=== PATIENT | female | born 1980 | race African-American/Black ===

== ENCOUNTER 2021-03-08 16:10 | Outpatient (CLI) | payer OTHER, SELFPAY ==
--- NOTE | ~2021-03-08 | XR_ITS ---
XR sacroiliac joints min 3V DATE: 03/08/2021 16:39 INDICATION: Sacroiliac pain TECHNIQUE: Frontal and oblique views COMPARISON: None FINDINGS: The pubic symphysis and sacroiliac joints appear normal. No erosive change or ankylosis, fr acture or dislocation is evident at the sacroiliac joints. IMPRESSION: Negative Reviewed, dictated and finalized at Location [facility]. Reviewed, dictated and finalized at location B. IMPRESSION: Negative
== END 2021-03-08 16:11 | disposition home or self-care (01) ==
LOC: ANHIMG 16:14
PROVIDERS: PCP Family Medicine; Visit Provider Family Medicine
DX: M79.18 Myalgia, other site (principal)
CPT/HCPCS: 72202

== ENCOUNTER 2021-08-21 11:00 | Emergency (ER) | payer OTHER, SELFPAY ==
[2021-08-21 11:05] VITALS: BP 136/92; PULSE 109; RESP 16; TEMP 36.9; O2SAT 98
--- NOTE | 2021-08-21 11:29 | ED.URI ---
HPI - URI/Sore Throat General Chief Complaint: Upper Respiratory Infection Stated Complaint: russo/sore throat/ear pain Time Seen by Provider: 08/21/21 11:17 Source: patient and RN notes reviewed Mode of arrival: ambulatory Limitations: no limitations History of Present Illness HPI Narrative: Patient presents today complaining of a 5 to 6-day history of sinus pressure, congestion, bilateral ear pain, headache, with left eye redness and watering x3 days. 5 days ago she had a COVID-19 test at [facility] and the results were negative. She has been taking Tylenol, Sudafed, NyQuil, elderberry syrup without much relief. She had appointment set up with her PCP, but they would not see her due to COVID-19 symptoms. MD elicited complaint: nasal congestion and sinus pain Related Data Allergies Allergy/AdvReac Type Severity Reaction Status Date / Time No Known Allergies Allergy Unverified 04/26/21 10:00 Review of Systems Review of Systems: CONSTITUTIONAL: Denies body aches, fever, chills, or sweats. EYES: Denies visual changes, or discharge.+ Left eye redness and watering ENT: Denies rhinorrhea, sore throat, or otalgia.+ Congestion, sinus pressure, ear pain CARDIOVASCULAR: Denies chest pain, palpitations, or edema. RESPIRATORY: Denies cough or dyspnea. GASTROINTESTINAL: Denies abdominal pain, nausea, vomiting, or diarrhea. GENITOURINARY: Denies dysuria or hematuria. SKIN: Denies rash, itching, or wounds. MUSCULOSKELETAL: Denies back pain, joint pain, or myalgia. NEUROLOGIC: Denies numbness, tingling, or weakness.+ Headache PSYCH: Denies depression or anxiety. [facility] Past Medical History Medical History ACL injury tear Chronic insomnia Constipation by delayed colonic transit External hemorrhoids Gestational diabetes History of rectal bleeding Internal hemorrhoids Normal colonoscopy Vertigo Surgical History Surgical History H/O LEEP History of ablation of neoplasm of liver History of tonsillectomy S/P right knee arthroscopy ACL repair 2018 Family History Family History Mother Hypertension Family history of diabetes mellitus in first degree relative Asthma Other Family history of arthritis Social History Social History Social History: Single Smoking status: Never smoker Second hand tobacco smoke exposure: No Alcohol intake: current Alcohol use details: Occasionally Substance use: never Substance use type: does not use Gender identity (if verbalized by the patient): Female Sexual Orientation (if Verbalized by the Patient): Straight or Heterosexual Comments At time of signature, I have reviewed and agree with nursing past medical, surgical, social and family history unless otherwise noted. Please see nursing chart for further information. There is no relevant family history pertinent to the presenting complaint Exam Narrative: GENERAL: Mildly ill-appearing, well-nourished, and in no acute distress. HEAD: Normocephalic, atraumatic. EYES: EOMI. PERRL. Left eye: Injected conjunctiva with moderate watery discharge. Lids and lashes normal. Right eye normal ENT: Mucous membranes pink and moist. Nares congested with rhinorrhea. TMs normal bilaterally. Throat normal. Uvula midline. NECK: Normal AROM. Supple. No lymphadenopathy. CHEST: No respiratory distress. Clear to auscultation. HEART: Regular rate and rhythm. No murmur appreciated. Normal peripheral pulses. EXTREMITIES: Normal range of motion. No edema. SKIN: Warm, dry, no rash. Capillary refill normal. Normal skin turgor. NEURO: No focal deficits. Alert and oriented x3. Gait steady. PSYCH: Normal affect. No signs of depression or anxiety. Course Course Level of Care: Express Care Visit Vit
== END 2021-08-21 12:20 | disposition home or self-care (01) ==
PROVIDERS: Emergency Provider Nurse Practitioner; PCP Family Medicine
DX: J06.9 Acute upper respiratory infection, unspecified (principal); H10.32 Unspecified acute conjunctivitis, left eye; Z20.822 Contact with and (suspected) exposure to COVID-19
CPT/HCPCS: 87426; 87804; 99213; C9803; G0463

== ENCOUNTER 2022-06-13 17:13 | Emergency (ER) | payer OTHER, SELFPAY ==
[2022-06-13 17:24] VITALS: BP 151/93; PULSE 81; RESP 16; TEMP 37; O2SAT 99
[2022-06-13 17:32] VITALS: BP 151/93; PULSE 81; RESP 16; TEMP 37; O2SAT 99
--- NOTE | 2022-06-13 17:40 | ED.URI ---
HPI - URI/Sore Throat General Chief Complaint: Upper Respiratory Infection Stated Complaint: cough, Time Seen by Provider: 06/13/22 17:31 Source: patient Mode of arrival: ambulatory Limitations: no limitations History of Present Illness HPI Narrative: Patient presents today complaining of a an almost 3 week history of cough, congestion, ear pressure. Over a week ago she was seen by telemedicine, diagnosed with bronchitis and prescribed amoxicillin and an albuterol inhaler. She finished the amoxicillin and states her symptoms are no better. She has been using many [id number]-[id number] treatments without much relief, including Delsym, Vicks Vaporub, Sudafed. History of asthma, but does not use any routine medications. Related Data Home Medications Medication Instructions Recorded Confirmed Flonase 06/13/22 Allergies Allergy/AdvReac Type Severity Reaction Status Date / Time No Known Allergies Allergy Verified 06/13/22 17:23 Review of Systems Review of Systems: CONSTITUTIONAL: Denies body aches, fever, chills, or sweats. EYES: Denies visual changes, redness, or discharge. ENT: Denies rhinorrhea, sore throat, or otalgia.+ Congestion, ear pressure CARDIOVASCULAR: Denies chest pain, palpitations, or edema. RESPIRATORY: Denies dyspnea.+ cough, wheezing GASTROINTESTINAL: Denies abdominal pain, nausea, vomiting, or diarrhea. GENITOURINARY: Denies dysuria or hematuria. SKIN: Denies rash, itching, or wounds. MUSCULOSKELETAL: Denies back pain, joint pain, or myalgia. NEUROLOGIC: Denies headache, numbness, tingling, or weakness. PSYCH: Denies depression or anxiety. [facility] Past Medical History Medical History ACL injury tear Chronic insomnia Constipation by delayed colonic transit External hemorrhoids Gestational diabetes History of rectal bleeding Internal hemorrhoids Normal colonoscopy Vertigo Surgical History Surgical History H/O LEEP History of ablation of neoplasm of liver History of tonsillectomy S/P right knee arthroscopy ACL repair 2018 Family History Family History Mother Hypertension Family history of diabetes mellitus in first degree relative Asthma Other Family history of arthritis Social History Social History Social History: Single Smoking status: Never smoker Second hand tobacco smoke exposure: No Alcohol intake: current Alcohol use details: Occasionally Substance use: never Substance use type: does not use Gender identity (if verbalized by the patient): Female Sexual Orientation (if Verbalized by the Patient): Straight or Heterosexual Comments At time of signature, I have reviewed and agree with nursing past medical, surgical, social and family history unless otherwise noted. Please see nursing chart for further information. There is no relevant family history pertinent to the presenting complaint Exam Narrative: GENERAL: Well-appearing, well-nourished, and in no acute distress. HEAD: Normocephalic, atraumatic. EYES: EOMI. No redness or drainage. Conjunctivae normal. ENT: Mucous membranes pink and moist. Nares congested. No rhinorrhea. TMs normal bilaterally. Throat normal. Uvula midline. NECK: Normal AROM. Supple. No lymphadenopathy. CHEST: No respiratory distress. Slight wheezing in the left upper lobe, otherwise clear. HEART: Regular rate and rhythm. No murmur appreciated. Normal peripheral pulses. EXTREMITIES: Normal range of motion. No edema. SKIN: Warm, dry, no rash. Capillary refill normal. Normal skin turgor. NEURO: No focal deficits. Alert and oriented x3. Gait steady. PSYCH: Normal affect. No signs of depression or anxiety. Course Course Level of Care: Express Care Visit Vital Signs Vital sig
== END 2022-06-13 17:52 | disposition home or self-care (01) ==
PROVIDERS: Emergency Provider Nurse Practitioner; PCP Family Medicine
DX: J40 Bronchitis, not specified as acute or chronic (principal); J45.909 Unspecified asthma, uncomplicated
CPT/HCPCS: 99213; G0463

== ENCOUNTER 2022-06-20 10:16 | Emergency (ER) | payer OTHER, SELFPAY ==
--- NOTE | ~2022-06-20 | XR_ITS ---
EXAMINATION: XR chest 2V DATE: 06/20/2022 10:44 INDICATION: Cough and shortness of breath TECHNIQUE: PA and lateral views of the chest are obtained. COMPARISON: 04/24/2016 FINDINGS: The lungs are free of acute opacities. No pleural effusion or pneumothorax. The cardiomedia stinal silhouette is normal. The visualized bones and soft tissues are unremarkable. IMPRESSION: 1. No acute cardiopulmonary abnormality. Reviewed, dictated and finalized at location B. 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
--- NOTE | 2022-06-20 10:24 | ED.URI ---
HPI - URI/Sore Throat General Chief Complaint: Upper Respiratory Infection Stated Complaint: COUGH/CONGESTION/WHEEZING/SOB Time Seen by Provider: 06/20/22 10:30 Source: patient and RN notes reviewed Mode of arrival: ambulatory Limitations: no limitations History of Present Illness HPI Narrative: 41-year-old female presents with concern for 3-1/2 week history as cough and shortness of breath she reports she had a telehealth visit on June 05 that she was prescribed amoxicillin and albuterol. She reports that did not help her symptoms much. She reports she was then seen on June 13 and was given cough medicine and steroids. Reports the steroids helped her sinus pressure but did not help her cough and shortness of breath. She reports she has a history of asthma but has not had many issues with her asthma. She reports she continues to have feeling of shortness of breath, cough, chest congestion. She reports she uses her albuterol inhaler 3-4 times daily. MD elicited complaint: cough and other (Shortness of breath) Related Data Allergies Allergy/AdvReac Type Severity Reaction Status Date / Time No Known Allergies Allergy Verified 06/20/22 10:19 Review of Systems Review of Systems: CONSTITUTIONAL: Denies malaise, chills, sweats, or fever. EYES: Denies visual changes, redness, or discharge. ENT: Denies rhinorrhea, congestion, sinus pain, otalgia and sore throat. CARDIOVASCULAR: Denies chest pain, palpitations, or edema. RESPIRATORY: Reports cough, chest congestion, dyspnea. GASTROINTESTINAL: Denies abdominal pain, nausea, vomiting, diarrhea SKIN: Denies rash or itching. MUSCULOSKELETAL: Denies myalgia. NEUROLOGIC: Denies headache. All systems reviewed & are unremarkable except as noted in HPI and below PMFSH Past Medical History Medical History ACL injury tear Chronic insomnia Constipation by delayed colonic transit External hemorrhoids Gestational diabetes History of rectal bleeding Internal hemorrhoids Normal colonoscopy Vertigo Surgical History Surgical History H/O LEEP History of ablation of neoplasm of liver History of tonsillectomy S/P right knee arthroscopy ACL repair 2018 Family History Family History Mother Hypertension Family history of diabetes mellitus in first degree relative Asthma Other Family history of arthritis Social History Social History Social History: Single Smoking status: Never smoker Second hand tobacco smoke exposure: No Alcohol intake: current Alcohol use details: Occasionally Substance use: never Substance use type: does not use Gender identity (if verbalized by the patient): Female Sexual Orientation (if Verbalized by the Patient): Straight or Heterosexual Comments At time of signature, agree with nursing past medical, surgical, social and family history. There is no relevant family history pertinent to the presenting complaint Exam Narrative: GENERAL: Well-appearing, well-nourished, and in no acute distress. HEAD: Normocephalic EYES: PERRLA, conjunctivae clear ENT: Nares clear, turbinates edematous and erythematous, clear discharge. Mucous membranes moist. TM pearly sanchez with dull light reflex bilaterally; no tragal tenderness. Oropharynx not erythematous without lesions. Tonsils not enlarged and without exudate, no drooling, no hoarseness, no trismus, uvula midline. NECK: Supple. No lymphadenopathy CHEST: Clear to auscultation, breath sounds equal. No wheezing, rhonchi, rales, or stridor. No respiratory distress, speaks in full sentences. HEART: Regular rate and rhythm. No murmur heard. SKIN: Warm, dry, no rash. NEURO: Alert and oriented x3. PSYCH: Normal mood and affect Course Course Emergency Course: P
[2022-06-20 10:30] VITALS: BP 143/76; PULSE 95; RESP 20; TEMP 36.5; O2SAT 99
[2022-06-20 10:35] VITALS: BP 143/76; PULSE 95; RESP 20; TEMP 36.5; O2SAT 99
[2022-06-20 11:14] VITALS: O2SAT 99
[2022-06-20] MEDS: ALBUTEROL SULFATE NEB 2.5 MG/3 ML INH INHALATION (11:14)
[2022-06-20] MEDS: IPRATROPIUM BR 0.02% INH SOLN 0.5 MG/2.5 ML VIAL INHALATION (11:14)
[2022-06-20 11:40] VITALS: O2SAT 99
== END 2022-06-20 11:45 | disposition home or self-care (01) ==
PROVIDERS: Emergency Provider Nurse Practitioner; PCP Family Medicine
DX: J06.9 Acute upper respiratory infection, unspecified (principal)
CPT/HCPCS: 71046; 94640; 99213; G0463

== ENCOUNTER 2022-11-13 13:23 | Emergency (ER) | payer OTHER, SELFPAY ==
[2022-11-13 13:34] VITALS: BP 139/86; PULSE 88; RESP 16; TEMP 36.6; O2SAT 97
--- NOTE | 2022-11-13 13:40 | ED.URI ---
HPI - URI/Sore Throat General Chief Complaint: Upper Respiratory Infection Stated Complaint: ear pain, sore throat, cough,headache Source: patient, RN notes reviewed and old records reviewed Mode of arrival: ambulatory Limitations: no limitations History of Present Illness HPI Narrative: 42 year old female who presents to [facility] care with complaints of headache,sore throat, ear pain, body aches since Thursday night and cough starting last night. Patient reports that her daughter was diagnosed with strep last with her last antibiotic scheduled on Thursday. Patient reports that she was in bed all day yesterday feeling poorly, has been taking Mucinex, cough drops Chloraseptic throat spray and using nasal inhaler. Patient reports that she has been COVID vaccinated an has had flu shot this season. MD elicited complaint: cough, sore throat and other (ear pain) Pertinent past history: asthma and other (bronchitis) Onset (ago): day(s) (day 4 of symptoms) Severity: severe Pain scale (0-10): 9 Description of mucous: clear Able to tolerate fluids by mouth: Yes Treatments prior to arrival: other (Mucinex,cough drops, Chloraseptic throat spray,nasal inhaler) Related Data Home Medications Medication Instructions Recorded Confirmed albuterol sulfate 90 mcg/actuation 90 mcg inhalation Q4H PRN 11/13/22 11/13/22 aerosol inhaler Shortness Of Breath drospirenone (contraceptive) 4 mg 1 tablet PO DAILY 11/13/22 11/13/22 (28) tablet (Slynd) Allergies Allergy/AdvReac Type Severity Reaction Status Date / Time No Known Allergies Allergy Verified 11/13/22 13:44 Review of Systems Review of Systems: CONSTITUTIONAL:Reports malaise, chills, sweats, or fever. EYES: Denies visual changes, redness, or discharge. ENT: Reports rhinorrhea, congestion, sinus pain, otalgia and sore throat. CARDIOVASCULAR: Denies chest pain, palpitations, or edema. RESPIRATORY: Reports cough.? Denies dyspnea. GASTROINTESTINAL: Denies abdominal pain, nausea, vomiting, diarrhea SKIN: Denies rash or itching. MUSCULOSKELETAL: Reports myalgia. NEUROLOGIC: Reports headache. All systems reviewed & are unremarkable except as noted in HPI and below PMFSH Past Medical History Medical History (Updated 11/13/22 @ 13:53 by Domonique Turner NP) 10 weeks gestation of ACL injury tear Acute pain of right knee Annual physical exam Anxiety disorder, unspecified Chronic insomnia Constipation by delayed colonic transit Contraceptive use Contusion of right knee, initial encounter Effusion of right knee Elevated blood pressure reading Encounter for other specified surgical aftercare External hemorrhoids Generalized anxiety disorder Gestational diabetes Groin mass Hemangioma of liver Hematochezia Hepatic focal nodular hyperplasia History of rectal bleeding Hx of abnormal cervical Pap smear Internal hemorrhoids Liver mass Metabolic syndrome Mild intermittent asthma without complication Normal colonoscopy Obstructive sleep apnea (adult) (pediatric) Other specified depressive episodes Palpitations Perioral dermatitis Positive depression screening PSVT (paroxysmal supraventricular tachycardia) Recurrent tonsillitis Rupture of anterior cruciate ligament Uterine leiomyoma Vertigo Surgical History Surgical History H/O LEEP History of ablation of neoplasm of liver History of tonsillectomy S/P right knee arthroscopy ACL repair 2018 Family History Family History Mother Hypertension Family history of diabetes mellitus in first degree relative Asthma Other Family history of arthritis Social History Social History (Updated 07/08/22 @ 09:43 by Rosalie Campbell) Social History: Single Smoking status: Never smoker Second hand tobacco smoke exposure: No Alcohol intake: current Alcohol use details: Occasionally Substance us
== END 2022-11-13 14:04 | disposition home or self-care (01) ==
PROVIDERS: Emergency Provider Registered Nurse; PCP Family Medicine
DX: U07.1 COVID-19 (principal); J45.909 Unspecified asthma, uncomplicated; F41.1 Generalized anxiety disorder
CPT/HCPCS: 87081; 87426; 87880; 99213; C9803; G0463

== ENCOUNTER 2023-08-05 09:56 | Outpatient (CLI) | payer OTHER, SELFPAY ==
--- NOTE | ~2023-08-05 | XR_ITS ---
XR abdomen/kub 1V 08/05/2023 10:12 INDICATION: Irritable bowel syndrome TECHNIQUE: KUB COMPARISON: None FINDINGS: Bowel gas pattern is normal. There is no evidence of free air, mass, organomegaly, ascites or obstruction. No abnormal calculi are seen. The bones appear intact. IMPRESSION: 1: No acute abdominal abnormality identified. Reviewed, dictated and finalized at location B. ING INSPECTOR
== END 2023-08-05 09:57 | disposition home or self-care (01) ==
PROVIDERS: PCP Family Medicine; Visit Provider Nurse Practitioner
DX: K58.1 Irritable bowel syndrome with constipation (principal)
CPT/HCPCS: 74018

== ENCOUNTER 2023-08-28 00:35 | Day surgery (SDC) | payer OTHER, SELFPAY ==
[2023-08-07 13:14] VITALS: BMI 34.0
--- NOTE | 2023-08-26 09:11 | SUR.PREOP ---
Patient called regarding upcoming procedure. Reviewed preop instructions, appointment times, and procedure prep.
[2023-08-28 11:10] VITALS: BP 131/73; PULSE 82; RESP 18; TEMP 36.2; O2SAT 99; BMI 32.8
[2023-08-28] MEDS: LACTATED RINGERS 1,000 ML 150 ML IV CONT (11:20)
--- NOTE | 2023-08-28 11:33 | WPDHPUPDATE1 ---
History and Physical Update Update Date/Time: 08/28/23 11:33 History and Physical has been reviewed, including an updated exam of the patient. There are NO changes in the patient's condition. Risks, benefits, and alternatives have been discussed and questions answered. Patient agrees to proceed with procedure.
[2023-08-28 11:50] VITALS: BP 117/78; PULSE 76; RESP 17; O2SAT 100
--- NOTE | 2023-08-28 11:50 | W.PM.PROC2 ---
Procedure Note - Detailed Date of Procedure 08/28/23 Pre-op Diagnosis hemorrhoids Post-op Diagnosis Same Procedure Performed IRC of internal hemorrhoids Surgeon Houston Stokes MD Anesthesia MAC (also had colonoscopy) Findings found small size internal hemorrhoids. Description of Procedure used anoscope and noted small size internal hemorrhoids, no fissure, no bleeding. Then introduced IRC probe and hemorrhoid treated for 1.5sec x5
[2023-08-28 12:00] VITALS: BP 128/80; PULSE 69; RESP 21; O2SAT 100
[2023-08-28 12:10] VITALS: BP 124/82; PULSE 73; RESP 25; O2SAT 100
--- NOTE | 2023-09-18 11:14 | WPDANESEPPF ---
Anes - Initial Pre Proc Eval Procedure: Operation Date: 08/28/23 14:00 Proposed Procedures p Colonoscopy - Houston Stokes MD s [facility] Hemorrhoid Treatment - Houston Stokes MD Date/Time: 09/18/23 11:14 Surgeon: Houston Stokes MD Pre Op Diagnosis: Irritable bowel syndrome W/constipation,abdom pain Patient Data Age: 42 Gender: F Height: 1.6 m Weight: 84 kg Last Vital Signs Temp 97.1 F L 08/28/23 11:10 Pulse 73 08/28/23 12:10 Resp 25 H 08/28/23 12:10 BP 124/82 08/28/23 12:10 Pulse Ox 100 08/28/23 12:10 O2 Del Method Room Air 08/28/23 12:10 Allergies Allergy/AdvReac Type Severity Reaction Status Date / Time No Known Allergies Allergy Verified 09/10/23 15:38 Home Medications Medication Instructions Recorded Confirmed Type inhalat.spacing dev,large mask #1 ea 06/20/22 09/11/23 Rx (BreatheRite Spacer and Mask, Adult) albuterol sulfate 90 mcg/actuation 90 mcg inhalation Q4H PRN 11/13/22 09/11/23 History aerosol inhaler Shortness Of Breath montelukast 10 mg tablet 10 mg PO QHS #90 tabs 05/22/23 09/11/23 Rx escitalopram oxalate 10 mg tablet See Rx Instructions .Route 06/01/23 09/11/23 Rx .COMPLEX #135 tabs trazodone 50 mg tablet See Rx Instructions .Route 06/16/23 09/11/23 Rx .COMPLEX #90 tabs linaclotide 290 mcg capsule 290 mcg PO QAM #90 caps 09/01/23 09/11/23 Rx (Linzess) Patient hx anesthesia problems: none Family hx anesthesia problems: none Results Review: All pre-operative results and documents have been reviewed as part of the pre-operative evaluation. [facility] Past Medical History Medical History 10 weeks gestation of ACL injury tear Acute pain of right knee Annual physical exam Anxiety disorder, unspecified Chronic insomnia Constipation by delayed colonic transit Contraceptive use Contusion of right knee, initial encounter Effusion of right knee Elevated blood pressure reading Encounter for other specified surgical aftercare External hemorrhoids Generalized anxiety disorder Gestational diabetes Groin mass Hemangioma of liver Hematochezia Hepatic focal nodular hyperplasia History of rectal bleeding Hx of abnormal cervical Pap smear Hx of adenomatous colonic polyps Internal hemorrhoids Irritable bowel syndrome with constipation Liver mass Metabolic syndrome Mild intermittent asthma without complication Normal colonoscopy Obesity Obstructive sleep apnea (adult) (pediatric) Other specified depressive episodes Palpitations Pelvic floor dysfunction in female Perioral dermatitis Positive depression screening PSVT (paroxysmal supraventricular tachycardia) Rectal bleeding Rectal pain Recurrent tonsillitis Rupture of anterior cruciate ligament Tenesmus (rectal) Uterine leiomyoma Vertigo Surgical History Surgical History H/O LEEP History of ablation of neoplasm of liver History of tonsillectomy S/P right knee arthroscopy ACL repair 2018 Family History Family History Mother Hypertension Family history of diabetes mellitus in first degree relative Asthma Other Family history of arthritis Social History Social History Social History: Single Smoking status: Never smoker Second hand tobacco smoke exposure: No Alcohol intake: never Alcohol use details: Occasionally Substance use: never Substance use type: does not use Lack of Transportation: No Lack of Food: Never True Current Housing: I Have Housing Concerned About Future Housing: No Difficulty Paying Gas/Electric Bills: No Difficulty Paying for Meds: No Currently Unemployed: No Education: Decline to Answer Difficulty w/ Childcare or Family Care: No Living arrangements: with family Occupati
== END 2023-08-28 12:19 | disposition home or self-care (01) ==
PROVIDERS: PCP Family Medicine; Visit Provider Internal Medicine Gastroenterology
PROC: 0DJD8ZZ Inspection of Lower Intestinal Tract, Via Natural or Artificial Opening Endoscopic (ICD-10-PCS; CPT 45378; principal; 2023-08-28 14:00)
PROC: (CPT 46930; 2023-08-28 14:00)
DX: D12.5 Benign neoplasm of sigmoid colon (principal); K64.8 Other hemorrhoids; J45.20 Mild intermittent asthma, uncomplicated; Z79.51 Long term (current) use of inhaled steroids; F41.9 Anxiety disorder, unspecified
CPT/HCPCS: 45385; 46930; 88305; J2704; J7120

== ENCOUNTER 2023-09-23 08:53 | Outpatient (CLI) | payer OTHER, SELFPAY ==
--- NOTE | ~2023-09-23 | CT_ITS ---
EXAMINATION: CT abdomen pelvis w con DATE: 09/23/2023 09:47 INDICATION: Right mid abdominal pain, tender right periumbilical area TECHNIQUE: Computed tomography (CT) of the abdomen and pelvis was performed with 100 CC Omnipaque 350 intravenous contrast. Automated exposure control and iterative reconstruction technique were employe d. Exam dose: 608.80 mGy-cm total exam DLP. COMPARISON: 08/05/2023 KUB 05/15/2017 CT abdomen pelvis FINDINGS: The lung bases are clear of infiltrate or consolidation. Normal heart size. No pericardial or pleural effusion. Small sliding hiatal hernia. Hepatic steatosis. Two previously reported 3.3 cm hepatic masses noted on 05/15/2017 CT abdomen pelvis are no longer appa rent; these have either resolved or are isodense with normal hepatic tissue at the time of imaging. The gallbladder appears unremarkable. No bile duct or pancreatic duct dilatation or pancreatic mass l esion or calcification. Normal splenic size. Normal morphology of the adrenal glands. 10 mm upper pole left renal cyst. Suggestion of a couple of very small right renal cyst. No urinary t ract calculus or hydroureteronephrosis. The urinary bladder is unremarkable. Normal caliber of the abdominal aorta. No intraperitoneal or retroperitoneal or pelvic mass lesion or adenopathy is noted with the exception of the uterine cervix: Approximately 4 x 4.3 cm soft tissue mass is at the uterine cervix, raising concern for uterine cervi miguel malignancy. There is fluid in the uterine endometrial cavity, measuring up to 7.9 mm AP dimension . Gynecologic consult is recommended. Minimal sigmoid diverticulosis; no evidence of diverticulitis. No bowel obstruction, bowel wall thick ening, pneumatosis or intraperitoneal free air. Normal appendix. Small fat-containing umbilical hernia. Included skeletal structures are unremarkable. IMPRESSION: Prominent uterine cervical mass, measuring up to 4 x 4.3 cm, with some fluid distention of the endometrial cavity; endometrial cancer is suspected. Gynecologic consult is recommended. Small sliding hiatal hernia Previously reported 3.3 cm hepatic masses are not currently evident, either resolved or isodense on c urrent examination. Consider hepatic MR if further evaluation is warranted clinically. Hepatic steatosis 10 mm left renal cyst. Probable very small right renal cysts Minimal sigmoid diverticulosis Normal appendix Reviewed, dictated and finalized at Location A. Reviewed, dictated and finalized at location B. 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 Gynecologic consult is recommended. Small sliding hiatal hernia Previously reported 3.3 cm hepatic masses are not currently evident, either res olved or isodense on current examination. Consider hepatic MR if further evalua tion is warranted clinically. Hepatic steatosis 10 mm left renal cyst. Probable very small right renal cysts Minimal sigmoid diverticulosis Normal appendix
== END 2023-09-23 08:54 | disposition home or self-care (01) ==
PROVIDERS: PCP Family Medicine; Visit Provider Nurse Practitioner
DX: K57.30 Diverticulosis of large intestine without perforation or abscess without bleeding (principal); N88.9 Noninflammatory disorder of cervix uteri, unspecified; K44.9 Diaphragmatic hernia without obstruction or gangrene; K76.0 Fatty (change of) liver, not elsewhere classified; N28.1 Cyst of kidney, acquired
CPT/HCPCS: 74177; Q9967

== ENCOUNTER 2023-11-04 08:29 | Outpatient (CLI) | payer OTHER, SELFPAY ==
[2023-11-04 09:11] LABS: Hematocrit 37.5 % (37.0-47.0); Hemoglobin 12.5 g/dL (12.0-15.0)
== END 2023-11-04 08:30 | disposition home or self-care (01) ==
LOC: ANHSURGERY 08:32
PROVIDERS: PCP Family Medicine; Visit Provider Student in an Organized Health Care Education/Training Program
DX: Z01.818 Encounter for other preprocedural examination (principal); N88.8 Other specified noninflammatory disorders of cervix uteri
CPT/HCPCS: 36415; 85014; 85018

== ENCOUNTER 2023-11-05 00:31 | Day surgery (SDC) | payer OTHER, SELFPAY ==
[2023-10-29 09:34] VITALS: BMI 32.2
--- NOTE | 2023-10-29 09:40 | PC.NURSE ---
Report to the Outpatient Waiting Room, entrance under the green pavilion located off [facility], at time 12:00 on date 11/05/23. Planned Procedure Time: 2:00. Time changes happen often and if your time is changed the preop area will call you the afternoon before. - You and your visitor will be asked to self-screen and do not enter if you have any COVID symptoms. - A mask is optional within the hospital at this time. Patients may have clear liquids (water, carbonated beverages, clear teas, apple juice) until 3 hours prior to surgery (11:00) with a maximum of 20 ounces. - No food from midnight until time of surgery Take the following medications with a SIP of water the morning of surgery: INHALER IF NEEDED DO NOT STOP ANY OF YOUR OTHER PRESCRIPTION MEDICATIONS PRIOR TO SURGERY ?EXCEPT THE FOLLOWING Medications to discontinue per physician: VITAMINS Date to take last dose: 11/01/23 Please no make-up, nail tajik, hairspray, perfume, deodorant, or body powder the day of surgery. No jewelry (including any body piercings) or valuables the day of surgery, leave them at home. Please take a shower or bath the night before, or the morning of, surgery with an antibacterial soap. Wear comfortable, loose fitting clothing. - Jewelry must be removed prior to entering the operating room. Rings and piercings that are not removed may be cut off. - The hospital will not accept responsibility for valuables. - Please leave all valuables, including medications, at home the day of surgery. If you are going home after surgery, a licensed lift driver must drive you home. - NO public transportation without another adult if you receive anesthesia. - We recommend that an adult stay with you for 24 hours following discharge. - We also recommend that you do not drive, make important decision, drink alcoholic beverages, or take any drugs that were not prescribed by your health care provider for at least 24 hours after your discharge time. Follow any additional instructions given to you from your surgeon. If you or anyone in your household have experienced Covid symptoms in the past week, please notify your surgeon or the nurse liaison at the phone number below for possible testing. Telephone instructions given to TOYIN ATKINSON and asked if any additional questions and then verbalized understanding. Patient advised to call surgeon office or pre surgery nurse liaison [phone] if any additional questions.
--- NOTE | 2023-11-04 08:26 | PM.IMHP ---
H&P: HPI History of Present Illness Date/Time: 11/04/23 08:26 Chief Complaint: pelvic pain cervical mass Narrative: ?43-year-old female presents with pelvic pain and possible cervical mass.? Patient has been having abdominal pain for some time.?Patient does report a questionable history of uterine fibroids.? Patient had a CT scan which showed a 4 cm cervical mass.? Patient had pelvic ultrasound which did not identify any specific mass.? Patient reports a history of abnormal Pap smears requiring LEEP.? Patient reports continued pelvic pain Review of Systems Cardiovascular: Cardiovascular: Denies chest pain, Denies leg edema, Denies palpitations, Denies dyspnea and Denies dyspnea on exertion Respiratory: Respiratory: Denies cough, Denies dyspnea and Denies dyspnea on exertion Gastrointestinal: Gastrointestinal: Denies abdominal pain, Denies constipation, Denies diarrhea, Denies nausea and Denies vomiting Genitourinary: Genitourinary: Denies hematuria, Denies urinary frequency, Denies dysuria, Denies pelvic pain, Denies urinary incontinence and Denies vaginal discharge Neurologic: Reports system reviewed and no additional complaints, except as documented Psychiatric: Psychiatric: Reports no additional psychiatric complaints Endocrine: Endocrine: Denies palpitations PMF Past Medical History Medical History 10 weeks gestation of ACL injury tear Acute pain of right knee Annual physical exam Anxiety disorder, unspecified Chronic insomnia Constipation by delayed colonic transit Contraceptive use Contusion of right knee, initial encounter Effusion of right knee Elevated blood pressure reading Encounter for other specified surgical aftercare External hemorrhoids Generalized anxiety disorder Gestational diabetes Groin mass Hemangioma of liver Hematochezia Hepatic focal nodular hyperplasia History of rectal bleeding Hx of abnormal cervical Pap smear Hx of adenomatous colonic polyps Internal hemorrhoids Irritable bowel syndrome with constipation Liver mass Metabolic syndrome Mild intermittent asthma without complication Normal colonoscopy Obesity Obstructive sleep apnea (adult) (pediatric) Other specified depressive episodes Palpitations Pelvic floor dysfunction in female Perioral dermatitis Positive depression screening PSVT (paroxysmal supraventricular tachycardia) Rectal bleeding Rectal pain Recurrent tonsillitis Rupture of anterior cruciate ligament Tenesmus (rectal) Uterine leiomyoma Uterine mass Vertigo Surgical History Surgical History H/O LEEP History of ablation of neoplasm of liver History of tonsillectomy S/P right knee arthroscopy ACL repair 2018 Family History Family History Mother Hypertension Family history of diabetes mellitus in first degree relative Asthma Other Family history of arthritis Social History Social History Social History: Single Smoking status: Never smoker Second hand tobacco smoke exposure: No Alcohol intake: current Alcohol use details: RARE Substance use: never Substance use type: does not use Lack of Transportation: No Lack of Food: Never True Current Housing: I Have Housing Concerned About Future Housing: No Difficulty Paying Gas/Electric Bills: No Difficulty Paying for Meds: No Currently Unemployed: No Education: Decline to Answer Difficulty w/ Childcare or Family Care: No Living arrangements: with family Additional living arrangements comments: DAUGHTER Occupation/Education: occupation Gender identity (if verbalized by the patient): Female Sexual Orientation (if Verbalized by the Patient): Straight or Heterosexual Spiritual care concerns: No Meds Home Medications and Allergies Home Medica
--- NOTE | 2023-11-05 11:13 | WPDHPUPDATE1 ---
History and Physical Update Update Date/Time: 11/05/23 11:13 History and Physical has been reviewed, including an updated exam of the patient. There are NO changes in the patient's condition. Risks, benefits, and alternatives have been discussed and questions answered. Patient agrees to proceed with procedure.
[2023-11-05] MEDS: ACETAMINOPHEN 500 MG TABLET 1000 MG PO (11:58)
[2023-11-05 12:25] VITALS: BP 136/85; PULSE 78; RESP 16; TEMP 36.6; O2SAT 99
--- NOTE | 2023-11-05 13:15 | WPDANESEPPF ---
Anes - Initial Pre Proc Eval Procedure: Operation Date: 11/05/23 14:00 Proposed Procedures p Hysteroscopy Dilation and Curettage - Ruddy Ordoñez MD Date/Time: 11/05/23 13:15 Surgeon: Ruddy Ordoñez MD Pre Op Diagnosis: Cervical Mass Patient Data Age: 43 Gender: F Height: 1.61 m Weight: 83.5 kg Last Vital Signs Temp 36.6 C 11/05/23 12:25 Pulse 78 11/05/23 12:25 Resp 16 11/05/23 12:25 BP 136/85 11/05/23 12:25 Pulse Ox 99 11/05/23 12:25 O2 Del Method Room Air 11/05/23 12:25 Allergies Allergy/AdvReac Type Severity Reaction Status Date / Time No Known Allergies Allergy Verified 11/05/23 11:56 Home Medications Medication Instructions Recorded Confirmed Type inhalat.spacing dev,large mask #1 ea 06/20/22 10/15/23 Rx (BreatheRite Spacer and Mask, Adult) albuterol sulfate 90 mcg/actuation 90 mcg inhalation Q4H PRN 11/13/22 10/29/23 History aerosol inhaler Shortness Of Breath montelukast 10 mg tablet 10 mg PO QHS #90 tabs 05/22/23 10/29/23 Rx escitalopram oxalate 10 mg tablet See Rx Instructions .Route 06/01/23 10/29/23 Rx .COMPLEX #135 tabs linaclotide 290 mcg capsule 290 mcg PO QAM #90 caps 09/01/23 10/29/23 Rx (Linzess) ruxolitinib 1.5 % topical cream 1 applic topical DAILY 10/15/23 10/29/23 History (Opzelura) trazodone 50 mg tablet See Rx Instructions .Route 10/27/23 10/29/23 Rx .COMPLEX #90 tabs multivitamin 1 tablet PO DAILY 10/29/23 10/29/23 History Patient hx anesthesia problems: post op nausea/vomiting Family hx anesthesia problems: none Results Review: All pre-operative results and documents have been reviewed as part of the pre-operative evaluation. [facility] Past Medical History Medical History 10 weeks gestation of ACL injury tear Acute pain of right knee Annual physical exam Anxiety disorder, unspecified Chronic insomnia Constipation by delayed colonic transit Contraceptive use Contusion of right knee, initial encounter Effusion of right knee Elevated blood pressure reading Encounter for other specified surgical aftercare External hemorrhoids Generalized anxiety disorder Gestational diabetes Groin mass Hemangioma of liver Hematochezia Hepatic focal nodular hyperplasia History of rectal bleeding Hx of abnormal cervical Pap smear Hx of adenomatous colonic polyps Internal hemorrhoids Irritable bowel syndrome with constipation Liver mass Metabolic syndrome Mild intermittent asthma without complication Normal colonoscopy Obesity Obstructive sleep apnea (adult) (pediatric) Other specified depressive episodes Palpitations Pelvic floor dysfunction in female Perioral dermatitis Positive depression screening PSVT (paroxysmal supraventricular tachycardia) Rectal bleeding Rectal pain Recurrent tonsillitis Rupture of anterior cruciate ligament Tenesmus (rectal) Uterine leiomyoma Uterine mass Vertigo Surgical History Surgical History H/O LEEP History of ablation of neoplasm of liver History of tonsillectomy S/P right knee arthroscopy ACL repair 2018 Family History Family History Mother Hypertension Family history of diabetes mellitus in first degree relative Asthma Other Family history of arthritis Social History Social History Social History: Single Smoking status: Never smoker Second hand tobacco smoke exposure: No Alcohol intake: current Alcohol use details: RARE Substance use: never Substance use type: does not use Lack of Transportation: No Lack of Food: Never True Current Housing: I Have Housing Concerned About Future Housing: No Difficulty Paying Gas/Electric Bills: No Difficulty Paying for Meds: No Currently Unemployed: No Education: Decline to Ans
[2023-11-05] MEDS: LACTATED RINGERS 1,000 ML 30 ML IV CONT (13:35)
[2023-11-05] MEDS: KETOROLAC 30 MG/ML VIAL (*BKC) IV PUSH (14:11)
--- NOTE | 2023-11-05 14:22 | P.OP_ITS ---
Procedure Note - Detailed Date of Procedure 11/05/23 Pre-op Diagnosis pelvic pain Cervical Mass Post-op Diagnosis Same Procedure Performed hysteroscopy D&C Surgeon Ruddy Ordoñez MD Anesthesia General Indications pelvic pain cervical mass Findings normal appearing intrauterine cavity. Normal tubal ostia bilaterally. Globally thickened polypoid tissue within the endocervical canal Description of Procedure Morro Murillo presents for the above procedure. She was counseled as to the indications, risks, benefits, and alternatives to surgery, with the risks including bleeding, infection, damage to surrounding organs, VTE, and complications of anesthesia. Her verbal and written consent was obtained. PROCEDURE: The patient was taken to the OR and general anesthesia induced. She was prepped and draped in Roberto stirrups with support of the back and bilateral lower extremities. I/O catheterization performed of the bladder. The above findings were noted. A single tooth tenaculum was placed on the anterior lip of the cervix. The cervix was dilated with sequential Tamra dilators. Hysteroscopy, using a normal saline medium, was performed and showed the above findings. Sharp uterine curettage was then per formed and tissue placed on Telfa. The tenaculum was removed and hemostasis was observed. The patient tolerated the procedure well. Sponge, lap, and needle counts were correct. The patient had SCD's on throughout the case for VTE prophylaxis. The patient was taken to the recovery room in stable condition. Estimated Blood Loss 15 Drains No Packing No Pathology Yes (endometrial curettings ) Complications No immediate complications Condition Stable Disposition PACU [facility] Billing Surgery - Charge Forward: Surgery Billing
[2023-11-05 14:23] VITALS: BP 138/80; PULSE 64; RESP 16; O2SAT 97
[2023-11-05 14:55] VITALS: BP 135/82; PULSE 64; RESP 18
[2023-11-05] MEDS: oxyCODONE HCL (*CRX) 5 MG TAB IR PO (15:10)
[2023-11-05 15:25] VITALS: BP 126/70; PULSE 62; RESP 16
[2023-11-05 15:39] VITALS: BP 128/71; PULSE 61; RESP 16
== END 2023-11-05 15:42 | disposition home or self-care (01) ==
PROVIDERS: PCP Family Medicine; Visit Provider Student in an Organized Health Care Education/Training Program
PROC: 0U5B8ZZ Destruction of Endometrium, Via Natural or Artificial Opening Endoscopic (ICD-10-PCS; CPT 58563; principal; 2023-11-05 14:00)
DX: N88.8 Other specified noninflammatory disorders of cervix uteri (principal); F41.9 Anxiety disorder, unspecified; J45.909 Unspecified asthma, uncomplicated; F51.04 Psychophysiologic insomnia; D18.03 Hemangioma of intra-abdominal structures; K58.1 Irritable bowel syndrome with constipation; G47.33 Obstructive sleep apnea (adult) (pediatric); E88.810 Metabolic syndrome; F32.89 Other specified depressive episodes; E66.9 Obesity, unspecified; Z68.32 Body mass index [BMI] 32.0-32.9, adult; Z79.51 Long term (current) use of inhaled steroids; Z98.890 Other specified postprocedural states; Z86.010 Personal history of colon polyps; Z86.79 Personal history of other diseases of the circulatory system; Z85.05 Personal history of malignant neoplasm of liver
CPT/HCPCS: 58558; 88305; A9270; J1100; J1885; J2250; J2405; J2704; J3010; J7120

== ENCOUNTER 2023-12-04 10:00 | Outpatient (RCR) | payer OTHER, SELFPAY ==
--- NOTE | 2023-10-13 15:13 | OPREHPOC ---
Outpatient Therapy Plan of Care This is a Multidisciplinary Plan of Care that may contain components documented by all disciplines (PT, OT, and ST.) PT Problem 1 PT Problem #1 Knowledge Deficit PT Goal 1 Goal 1. Patient will perform independent HEP Target Visit 3 PT Problem 2 PT Problem #2 Pain PT Goal 1 Goal 1. Patient will be able to do all normal activities with pain no higher than 2/10 2. Pain with palpation of pelvic floor no higher than 1/10 to allow for tampon use etc. Target Visit 5 PT Problem 3 PT Problem #3 Impaired Strength PT Goal 1 Goal 1. Patient able to do abdominal contraction and hold with march to improve core support with mobility Target Visit 5
--- NOTE | 2023-10-13 15:14 | PTOPEVAL1 ---
Assessment and note entered by Sierra Higginbotham DPT Evaluation Information Assessment Status Evaluation Subjective Information Pt has been diagnosed with IBS with constipation and also reports she is getting a cramp or tory horse in her abdomen. Notices the cramp with certain movements and also when trying to have a BM. Has had a colonoscopy and CT scan done, did find a mass on her cervix. Sees Dr. Ordoñez for the mass tomorrow. Voids 5-6 times a day, 1-2 times at night. Denies urinary incontinence. Can hold urge to void for 30-45 minutes. Typically no pain with urination. Pt has recently started taking Linzess and is having BM 1-2 times a day. Before that would go several days between BM and noticed a lot of straining. Has had pain with BM but not since the Linzess. History of pelvic pain with attempting to use a tampon and pap smears. Pt has been 1 time and had emergency C section in November 2019. Abdominal pain increases with getting out of the bed in the morning and has been worsening over the last year. Drinks coffee and tea occasionally but not daily. Water most of the time. Eats more seafood than red meat but does not cut out red meat. Eats 3 meals a day, sometimes snacks. Eats more vegetables than fruit, does not eat fruit every day. Generally avoids dairy but does have cheese at times. Return to referring MD is not scheduled. Patient goal: stop cramping and pain Reported Pain Level Pain Score 0: Self Report Assessment PT Clinical Summary The patient is presenting to skilled therapy with a history of IBS with constipation and pelvic pain . She presents with increased pelvic floor muscle tone and pain with palpation, and decreased core strength which are contributing to her pain and difficulty with BM and other daily activities. She will benefit from skilled therapy to address her impairments in order to reduce pain and improve function. Plan of Care Interventions Electrical Stimulation,Gait Training,Hot Pack/Cold Pack,Manual Therapy,Neuro Re-education,Patient/ Caregiver Education,Therapeutic Activities, Therapeutic Exercise PT Services Indicated Yes Treatment Frequency and
--- NOTE | 2023-11-11 11:32 | OPREHPOC ---
Outpatient Therapy Plan of Care This is a Multidisciplinary Plan of Care that may contain components documented by all disciplines (PT, OT, and ST.) PT Problem 1 PT Problem #1 Knowledge Deficit PT Goal 1 Goal 1. Patient will perform independent HEP Target Visit 3 Progress Met PT Problem 2 PT Problem #2 Pain PT Goal 1 Goal 1. Patient will be able to do all normal activities with pain no higher than 2/10 2. Pain with palpation of pelvic floor no higher than 1/10 to allow for tampon use etc. Target Visit 5 Progress Partially Met PT Problem 3 PT Problem #3 Impaired Strength PT Goal 1 Goal 1. Patient able to do abdominal contraction and hold with march to improve core support with mobility Target Visit 5 Progress Not Met
--- NOTE | 2023-11-11 11:33 | PTOPPROG ---
Assessment and note entered by Sierra Higginbotham DPT Evaluation Information Assessment Status Progress Subjective Information Pt reports her recent hysteroscopy and d and c biopsy came back negative for cancer, currently they suspect fibroids. Procedure was done 12/06/23. States she has been told no tampons, exams, etc. until 11/18/23 which is her follow up visit. States therapy has been going well, no recent tory horses in her abdomen. Still taking her linzess. Highest pain recently 11/17 and lowest . Some difficulty differentiating due to recent procedure. BM daily over the last 2 weeks. Sometimes still has pain and straining, continues to use squatty potty and breathing techniques. Assessment PT Clinical Summary The patient has made some progress in therapy and reports none of the significant camping or tory horse pain in her abdomen recently. She demonstrates improved hip strength. Unable to fully assess pelvic floor this session due to recent hysteroscopy and plan to follow up with patient in 3-4 weeks as she had made some progress and will determine if more therapy is needed. Plan of Care Interventions Electrical Stimulation,Hot Pack/Cold Pack,Manual Therapy,Neuro Re-education,Patient/Caregiver Education,Therapeutic Activities,Therapeutic Exercise PT Services Indicated Yes Treatment Frequency and 1 visit in 3-4 weeks Duration These treatments will address the objective and functional deficits as defined above. The patient will be advanced safely and appropriately in order for the patient to progress towards his/her prior level of function. Additional exercises will be introduced and as well as a comprehensive home exercise program upon discharge, if needed, ?to ensure carryover of functional gains achieved in the clinic. This treatment plan has been reviewed and agreement upon by the patient.
--- NOTE | 2023-12-04 10:20 | OPREHPOC ---
Outpatient Therapy Plan of Care This is a Multidisciplinary Plan of Care that may contain components documented by all disciplines (PT, OT, and ST.) PT Problem 1 PT Problem #1 Knowledge Deficit PT Goal 1 Goal 1. Patient will perform independent HEP Target Visit 3 Progress Met PT Problem 2 PT Problem #2 Pain PT Goal 1 Goal 1. Patient will be able to do all normal activities with pain no higher than 2/10 2. Pain with palpation of pelvic floor no higher than 1/10 to allow for tampon use etc. Target Visit 5 Progress Partially Met Comment 1. not met 2. met PT Problem 3 PT Problem #3 Impaired Strength PT Goal 1 Goal 1. Patient able to do abdominal contraction and hold with march to improve core support with mobility Target Visit 5 Progress Not Met
--- NOTE | 2023-12-04 10:20 | PTOPDC ---
Assessment and note entered by Sierra Higginbotham DPT Evaluation Information Assessment Status Discharge Subjective Information Highest pain 5/10 and lowest 1/10. One Harpreet horse in the last couple weeks but not as intense as before starting therapy. BM 1-2 a day over the last two weeks, overall no pain or straining except one time after forgetting to take her linzess. Reported Pain Level Pain Score 1: Self Report Assessment PT Clinical Summary The patient has made excellent progress in therapy and reports overall decreased pain. She demonstrates improved pelvic floor muscle tone and ability to contract/relax appropriately and no pain on exam this visit. Due to her progress, plan to discharge at this time. She has been educatd to continue HEP and follow up with MD and/or PT as needed. Plan of Care PT Services Indicated No
== END 2023-12-04 11:11 | disposition home or self-care (01) ==
LOC: ANHPT 10:00
PROVIDERS: PCP Family Medicine; Visit Provider Nurse Practitioner
DX: K58.1 Irritable bowel syndrome with constipation (principal); M62.89 Other specified disorders of muscle; R19.8 Other specified symptoms and signs involving the digestive system and abdomen
CPT/HCPCS: 97110; 97140; 97161; 97530

== ENCOUNTER 2024-04-11 16:56 | Emergency (ER) | payer OTHER, SELFPAY ==
[2024-04-11 17:04] VITALS: BP 144/84; PULSE 76; RESP 16; TEMP 37.6; O2SAT 99
--- NOTE | 2024-04-11 17:04 | ED.LOWEXIN ---
HPI - Extremity Injury (Lower) General Stated Complaint: hit toe on left foot,pain Time Seen by Provider: 04/11/24 17:04 Source: patient, RN notes reviewed and old records reviewed Mode of arrival: ambulatory Limitations: no limitations History of Present Illness HPI Narrative: Patient presents with complaints of left 4th toe pain. She reports that she stubbed the toe 3 days ago. She had some immediate pain and swelling, the swelling and pain have reduced, but they are not gone. She has been taking Tylenol and ibuprofen for her symptoms with moderate relief. She denies other injury and trauma. She voices no other concerns or complaints at this time. Related Data Home Medications Medication Instructions Recorded Confirmed albuterol sulfate 90 mcg/actuation 90 mcg inhalation Q4H PRN 11/13/22 10/29/23 aerosol inhaler Shortness Of Breath ruxolitinib 1.5 % topical cream 1 applic topical DAILY 10/15/23 10/29/23 (Opzelura) multivitamin 1 tablet PO DAILY 10/29/23 10/29/23 Allergies Allergy/AdvReac Type Severity Reaction Status Date / Time No Known Allergies Allergy Verified 11/18/23 10:50 Review of Systems Review of Systems: All systems reviewed & are unremarkable except as noted in HPI and below Constitutional: Constitutional: Reports no additional constitutional complaints ENT: Reports system reviewed and no additional complaints, except as documented Cardiovascular: Cardiovascular: Reports no additional cardiovascular complaints Respiratory: Respiratory: Reports no additional respiratory complaints Gastrointestinal: Gastrointestinal: Reports no additional gastrointestinal complaints Musculoskeletal: Musculoskeletal: Reports no additional musculoskeletal complaints and Reports as per HPI [facility] Past Medical History Medical History 10 weeks gestation of ACL injury tear Acute pain of right knee Annual physical exam Anxiety disorder, unspecified Chronic insomnia Constipation by delayed colonic transit Contraceptive use Contusion of right knee, initial encounter Effusion of right knee Elevated blood pressure reading Encounter for other specified surgical aftercare External hemorrhoids Generalized anxiety disorder Gestational diabetes Groin mass Hemangioma of liver Hematochezia Hepatic focal nodular hyperplasia History of rectal bleeding Hx of abnormal cervical Pap smear Hx of adenomatous colonic polyps Internal hemorrhoids Irritable bowel syndrome with constipation Liver mass Metabolic syndrome Mild intermittent asthma without complication Normal colonoscopy Obesity Obstructive sleep apnea (adult) (pediatric) Other specified depressive episodes Palpitations Pelvic floor dysfunction in female Perioral dermatitis Positive depression screening PSVT (paroxysmal supraventricular tachycardia) Rectal bleeding Rectal pain Recurrent tonsillitis Rupture of anterior cruciate ligament Tenesmus (rectal) Uterine leiomyoma Uterine mass Vertigo Surgical History Surgical History H/O LEEP History of ablation of neoplasm of liver History of gynecologic surgery 11/05/2023 - hysteroscopy D&C - pelvic mass History of tonsillectomy S/P right knee arthroscopy ACL repair 2018 Family History Family History Mother Hypertension Family history of diabetes mellitus in first degree relative Asthma Other Family history of arthritis Social History Social History Social History: Single Smoking status: Never smoker Second hand tobacco smoke exposure: No Alcohol intake: current Alcohol use details: RARE Substance use: never Substance use type: does not use Lack of Transportation: No Lack of Food: Never True Current Housing: I Have Housing Concerned About Futu
== END 2024-04-11 17:15 | disposition home or self-care (01) ==
PROVIDERS: Emergency Provider Nurse Practitioner Family; PCP Family Medicine
DX: M79.675 Pain in left toe(s) (principal); R22.42 Localized swelling, mass and lump, left lower limb; R03.0 Elevated blood-pressure reading, without diagnosis of hypertension; E66.9 Obesity, unspecified; Z68.31 Body mass index [BMI] 31.0-31.9, adult
CPT/HCPCS: 99212; G0463

== ENCOUNTER 2024-04-15 14:49 | Outpatient (CLI) | payer OTHER, SELFPAY ==
--- NOTE | ~2024-04-15 | XR_ITS ---
EXAMINATION: XR foot LT 2V DATE: 04/15/2024 15:00 INDICATION: Left fourth toe injury. TECHNIQUE: 3 views of left foot were obtained. COMPARISON: None. FINDINGS: Alignment is normal. No fracture. Joint spaces are normal. There is an enthesophyte at plan tar aspect of calcaneal tuberosity. IMPRESSION: 1. No fracture. Reviewed, dictated and finalized at location A. IMPRESSION: 1. No fracture.
== END 2024-04-15 14:50 | disposition home or self-care (01) ==
LOC: MICIMG 14:51
PROVIDERS: PCP Family Medicine; Visit Provider Student in an Organized Health Care Education/Training Program
DX: M79.675 Pain in left toe(s) (principal); W22.8XXA Striking against or struck by other objects, initial encounter
CPT/HCPCS: 73620

== ENCOUNTER 2024-07-12 08:17 | Outpatient (CLI) | payer OTHER, SELFPAY ==
--- NOTE | ~2024-07-12 | XR_ITS ---
EXAMINATION: XR finger 1st LT min 2V DATE: 07/12/2024 08:43 INDICATION: Pain in left fingers. TECHNIQUE: 3 views of left thumb were obtained. COMPARISON: None. FINDINGS: Alignment is normal. No fracture. There is mild osteoarthritis of first interphalangeal cathy nt and first carpometacarpal joint. IMPRESSION: 1. Mild polyarticular osteoarthritis. Reviewed, dictated and finalized at location A. [employer]
== END 2024-07-12 08:18 | disposition home or self-care (01) ==
LOC: MICIMG 08:18
PROVIDERS: PCP Family Medicine; Visit Provider Physician Assistant
DX: M19.042 Primary osteoarthritis, left hand (principal)
CPT/HCPCS: 73140

== ENCOUNTER 2024-07-21 13:47 | Outpatient (CLI) | payer OTHER, SELFPAY ==
--- NOTE | ~2024-07-21 | US_ITS ---
US breast LT limited 07/21/2024 14:06 Indication: Left breast pain Procedure: High-resolution Limited ultrasound of the left breast Comparison: Outside mammogram dated 04/14/2024 and 01/20/2023 Findings: At 12:00, 1 cm from the nipple there is a 5 mm cyst. No suspicious sonographic abnormalitie s to suggest malignancy. Impression: 1: No sonographic evidence for malignancy in the left breast. Routine yearly screening mammogram and regular clinical breast examination are recommended. BI-RADS CATEGORY 2 - BENIGN FINDINGS Reviewed, dictated and finalized at location B. ITAL TELEVISION RENTAL CLERK Impression: 1: No sonographic evidence for malignancy in the left breast. Routine yearly screening mammogram and regular clinical breast examination are recommended. BI-RADS CATEGORY 2 - BENIGN FINDINGS
== END 2024-07-21 13:48 | disposition home or self-care (01) ==
LOC: ANHIMG 13:49
PROVIDERS: PCP Family Medicine; Visit Provider Physician Assistant
DX: N64.4 Mastodynia (principal)
CPT/HCPCS: 76642

== ENCOUNTER 2024-07-28 16:47 | Emergency (ER) | payer OTHER, SELFPAY ==
--- NOTE | 2024-07-28 17:02 | ED_ITS ---
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 States that she fell on the 11 of July. Was seen by primary care provider, x-ray done on the 12 of July which was negative for fractures. Related Data Home Medications ?Medication ?Instructions ?Recorded ?Confirmed ?Last Taken ?Type albuterol sulfate 90 mcg/actuation 90 mcg inhalation Q4H PRN 11/13/22 07/12/24 Unknown History aerosol inhaler Shortness Of Breath ruxolitinib 1.5 % topical cream 1 applic topical DAILY 10/15/23 07/12/24 Unknown History (Opzelura) multivitamin 1 tablet PO DAILY 10/29/23 07/12/24 Unknown History Allergies Allergy/AdvReac Type Severity Reaction Status Date / Time No Known Allergies Allergy Verified 07/28/24 17:19 Review of Systems Review of Systems: All systems reviewed & are unremarkable except as noted in HPI and below Constitutional: Constitutional: Reports no additional constitutional complaints ENT: Reports system reviewed and no additional complaints, except as do cumented Cardiovascular: Cardiovascular: Reports no additional cardiovascular complaints, Denies chest pain and Denies dyspnea Respiratory: Respiratory: Reports no additional respiratory complaints, Denies chest congestion, Denies cough and Denies dyspnea Musculoskeletal: Musculoskeletal: Reports as per HPI, Reports arthralgias and Reports joint swelling Integumentary/Breasts: Skin/Breast: Reports system reviewed and no additional complaints, except as docu PMFSH Past Medical History Medical History Uterine mass Hx of adenomatous colonic polyps Obesity Tenesmus (rectal) Pelvic floor dysfunction in female Rectal pain Rectal bleeding Irritable bowel syndrome with constipation COVID-19 Uterine leiomyoma Rupture of anterior cruciate ligament Recurrent tonsillitis PSVT (paroxysmal supraventricular tachycardia) Positive depression screening Perioral dermatitis Palpitations Other specified depressive episodes Obstructive sleep apnea (adult) (pediatric) Mild intermittent asthma without complication Metabolic syndrome Liver mass Hx of abnormal cervical Pap smear Hepatic focal nodular hyperplasia Hematochezia Hemangioma of liver Groin mass Generalized anxiety disorder Encounter for other specified surgical aftercare Elevated blood pressure reading Effusion of right knee Contusion of right knee, initial encounter Contraceptive use Anxiety disorder, unspecified Annual physical exam Acute pain of right knee 10 weeks gestation of Bronchitis Otalgia of right ear Upper respiratory disease Cough Sacroiliitis Buttock pain Chronic insomnia History of rectal bleeding Normal colonoscopy External hemorrhoids Internal hemorrhoids Constipation by delayed colonic transit Sleep disorder Establishing care with new doctor, encounter for ACL injury tear Vertigo Gestational diabetes Lipid screening Surgical History Surgical History History of gynecologic surgery 11/05/2023 - hysteroscopy D&C - pelvic mass S/P right knee arthroscopy ACL repair 2018 H/O LEEP History of tonsillectomy History of ablation of neoplasm of liver Family History Family History Mother Hypertension Family history of diabetes mellitus in first degree relative Asthma Other Family history of arthritis Social History Social History Social History: Single Smoking status: Never smoker Second hand tobacco smoke exposure: No Alcohol intake: current Alcohol use details: RARE Substance use: never Substance use type: does not use Lack of Transportation: No Lack of Food: Never True Current Housing: I Have Housing Concerned About Future Housing: No Difficulty Paying Gas/Electric Bills: No Difficulty Paying for Meds: No Currently Unemployed: No Education: Decline to Answer Difficulty w/ Childcare or Family Care: No Living arrangements: with family Additional living arrangements comments: DAUGHTER Occupation/Education: occupation Gender identity (if verbalized by the patient): Female Sexual Orientation (if Verbalized by the Patient): Straight or Heterosexual Spiritual care concerns: No Comments At the time of my signature, I reviewed and agree with the nursing past medical, surgical, social, and family history. There is no relevant family history pertinent to the patient complaint. Exam Const: General: cooperative, healthy appearing, comfortable, no acute distress, well developed, alert and well nourished Nutritional Appearance: well nourished Orientation/consciousness: patient oriented x3 Limitations: no limitations HENMT: Head: normal to inspection Face and sinus: normal facial exam and face symmetric Eyes: General: appearance normal, both eyes and all related structures Neck: Neck: normal visual inspection, full ROM, no lymphadenopathy and no meningeal signs Chest: Chest palpation & inspection: normal inspection of the chest Resp: Effort & Inspection: normal respiratory effort and able to speak in complete sentences Cardio: Rate: regular rate Skin: General skin exam: normal color and no rashes or lesions noted Neuro: General: patient oriented x3, gait normal, moves all extremities and no meningeal signs Cognition (Neuro): normal cognition Speech: normal speech Gait exam (Neuro): Normal gait present Extrem: General: normal to inspection, full ROM, capillary refill normal and normal gait Left upper extremity: hand normal capillary refill, neuromotor exam abnormal Details: thumb opposition abnormal Details: weak and limited by pain, tenderness of the thumb at the MCP joint, vascular exam radial pulse present and normal capillary refill and abnormal ROM of finger pain with active ROM of the thumb and pain with passive ROM of the thumb Psych: Appearance: grossly normal and well kempt Mental Status: mental status grossly normal Speech and movement: Normal speech and movement present and Clear speech present Affect: normal affect Attitude: cooperative Course Course Level of Care: Express Care Visit Vital Signs Vital signs: Vital Signs Temperature 98.2 F 07/28/24 17:03 Pulse Rate 73 07/28/24 17:03 Respiratory Rate 16 07/28/24 17:03 Blood Pressure 125/78 07/28/24 17:03 Pulse Oximetry 100 07/28/24 17:03 Oxygen Delivery Room Air 07/28/24 17:03 Temperature 98.2 F 07/28/24 17:03 Pulse Rate 73 07/28/24 17:03 Respiratory Rate 16 07/28/24 17:03 Blood Pressure 125/78 07/28/24 17:03 Pulse Oximetry 100 07/28/24 17:03 Oxygen Delivery Room Air 07/28/24 17:03 Reviewed Medical Decision Making MDM Narrative Medical decision making narrative: Patient sitting comfortably in exam room. Nontoxic, vitals stable. Patient in no acute distress Patient presents for decreased range of motion, pain continuous from being evaluated on the or 12 of July. Denies any new injury Reviewed previous x-ray and previous note. Information for hand specialist and encourage patient to follow-up with primary care provider Discharge instructions reviewed with patient, as well as provided in writing per nursing staff. The instructions also include specific and strict return/GO TO THE ER as well as f/u information. All questions have been answered, and the patient deny any further questions with discharge and discharge plan. Some parts of this dictation were generated by voice recognition software and may contain typographical and/or grammatical inaccuracies. Differential Diagnosis Differential Diagnosis: Thumb strain, sprain Medical Records Medical records reviewed: Yes I reviewed the external patient's medical records. Vital Signs Vital Signs: Vital Signs Temperature 98.2 F 07/28/24 17:03 Pulse Rate 73 07/28/24 17:03 Respiratory Rate 16 07/28/24 17:03 Blood Pressure 125/78 07/28/24 17:03 Pulse Oximetry 100 07/28/24 17:03 Oxygen Delivery Room Air 07/28/24 17:03 Temperature 98.2 F 07/28/24 17:03 Pulse Rate 73 07/28/24 17:03 Respiratory Rate 16 07/28/24 17:03 Blood Pressure 125/78 07/28/24 17:03 Pulse Oximetry 100 07/28/24 17:03 Oxygen Delivery Room Air 07/28/24 17:03 Reviewed Lab Data Lab results reviewed: Yes I reviewed the patient's lab results. Labs: Reviewed Critical Care Time Critical Care Time Critical Care Time: No Discharge Plan Discharge Clinical Impression: Finger sprain Qualifiers: Encounter type: subsequent encounter Finger: thumb Laterality: left Patient Disposition: Home, Self-Care Condition: Stable Instructions: Antibiotic Form, Finger Sprain (ED) Additional Instructions: Rest, ice and elevate every 2-3 hours for 15-20 minutes while awake Take Motrin alternating with Tylenol as needed pain [facility] -- Dr Adrianne Bhatt- [phone]- [place] [facility] Dr Lopez - [phone] -[place] Follow-up with primary care provider Patient Language: [place] Islander Prescriptions: No Action (DME) BreatheRite Spacer-Mask,Adult Spacer See Rx Instructions .Route Qty: 1 0RF Rx Instructions: As directed albuterol sulfate 90 mcg/actuation HFA aerosol inhaler 90 mcg INHALATION Q4H PRN (Reason: Shortness Of Breath) Opzelura 1.5 % cream 1 applic topical DAILY celecoxib [Celebrex] 50 mg capsule 50 mg PO BID Qty: 30 0RF multivitamin Tablet 1 tablet PO DAILY Linzess 290 mcg capsule 290 mcg PO QAM Qty: 90 3RF trazodone 50 mg tablet 100 mg .ROUTE QHS Qty: 180 1RF Rx Instructions: 100 mg (2 tabs) every day at bedtime escitalopram oxalate 10 mg tablet See Rx Instructions .ROUTE .COMPLEX Qty: 135 1RF Dose Instruction: TAKE 1 & 1/2 (ONE & ONE-HALF) TABLETS BY MOUTH ONCE DAILY Rx Instructions: TAKE 1 & 1/2 (ONE & ONE-HALF) TABLETS BY MOUTH ONCE DAILY montelukast 10 mg tablet See Rx Instructions .ROUTE .COMPLEX Qty: 90 1RF Dose Instruction: 10 MG ORALLY EVERY DAY AT BEDTIME Rx Instructions: 10 MG ORALLY EVERY DAY AT BEDTIME Follow-up/Referrals: Leona Dick MD [Physician] - 3 Days (express care follow up ) Rashida Sage MD [Primary Care Provider] - Stand Alone Forms: Work/School Release IP Time of Disposition: 17:22
[2024-07-28 17:03] VITALS: BP 125/78; PULSE 73; RESP 16; TEMP 36.8; O2SAT 100
== END 2024-07-28 17:32 | disposition home or self-care (01) ==
PROVIDERS: Emergency Provider Nurse Practitioner; PCP Family Medicine
DX: S63.602D Unspecified sprain of left thumb, subsequent encounter (principal); W19.XXXD Unspecified fall, subsequent encounter; J45.909 Unspecified asthma, uncomplicated; E66.9 Obesity, unspecified; Z68.33 Body mass index [BMI] 33.0-33.9, adult
CPT/HCPCS: 99212; G0463

== ENCOUNTER 2024-10-13 12:04 | Outpatient (CLI) | payer OTHER, SELFPAY ==
[2024-10-13 13:19] LABS: Hematocrit 36.6 % (37.0-47.0); Hemoglobin 11.8 g/dL (12.0-15.0); Mean Corpuscular HGB Conc 32.2 g/dl (32-36); Mean Corpuscular Hemoglobin 24.8 pg (26-34); Mean Corpuscular Volume 76.9 fl (80-100); Mean Platelet Volume 11.9 fl (7.4-10.4); Platelet Count Result 237 k/mm3 (150-375); Red Blood Count 4.76 M/mm3 (4.2-5.4); Red Cell Distribution Width 16.9 % (11.5-14.5); White Blood Count 5.7 K/mm3 (4.5-10.0)
--- OUTSIDE RECORDS SUMMARY | 2024-10-13 13:41 | XMS_ITS | Clinical Summary ---
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 Gender Identity Not on file Sexual Orientation Not on file Plan of Treatment Health Maintenance Due Date Last Done Comments Hepatitis C Virus (HCV) Screening 1979 Hepatitis B Immunization (1 of 3 - 19+ 3-dose series) 10/18/1998 Pap Smear 10/18/2000 Cervical Cancer Screening (CCS) 10/18/2009 HPV/Cotest 10/18/2009 Discussion re Starting/Frequency of Mammograms 2019 Influenza Immunization (#1) 2024 SARS-COV-2 Immunization (2023- season) 2024 12/13/2020, 11/18/2020 Respiratory Syncytial Virus (RSV) Immunization (Adult) (1 - 1-dose 75+ series) 10/18/2054 DTaP/Tdap/Td Immunization Discontinued 10/11/2019 TdaP Immunization Completed 10/11/2019 Meningococcal Immunization (ACWY) Aged Out No longer eligible based on patient's age to complete this topic Pneumococcal Immunization Combined Aged Out No longer eligible based on patient's age to complete this topic Rotavirus Immunization Aged Out No lo nger eligible based on patient's age to complete this topic
--- OUTSIDE RECORDS SUMMARY | 2024-10-13 13:41 | XMS_ITS | Encounter Summary ---
Author Organization [facility] Address [address] [place] [address] Care Team Providers Care Regulatory Process Manager Name Role Phone Unavailable Primary Care Provider Unavailabl e Encounter Details Date Type Department Care Team (Late st Contact Info) Description 05/19/2024 Lab Requisition [facility] - DermPath Lab [address] [place] [id number] Yulissa Barclay DO [address] [facility] [address] [place] [address] Social History Tobacco Use Types Packs/Day Years Used Date Smoking Tobacco: Never Smokeless Tobacco: Never Alcohol Use Standard Drinks/Week Comments Yes 0 (1 standard drink = 0.6 oz pur e alcohol) Sex and Gender Information Value Date Recorded Sex Assigned at Not on file Gender Identity Not on file Sexual Orientation Not on file documented as of this encounter Plan of Treatment Not on file documented as of this encounter Procedures Procedure Name Priority Date/Time Associated Diagnosis Comments DERMATOPATHOLOGY Routine 05/19/2024 3:25 PM CDT documented in this encounter Results * DERMATOPATHOLOGY (05/19/2024 3:25 PM CDT) Case Report Dermatopathology Report Case: [id number] Authorizing Provider: Yulissa Barclay DO Collected: 05/19/2024 03:25 PM Ordering Location: [facility] - Received: 05/20/2024 03:50 PM DermPath Lab Pathologist: Meena Saleh MD Specimens: A) - Skin, left foot affected B) - Skin, left foot unaffected 4:07 PM [facility] DERMATOPATHOLOGY LABORATORY Final Diagnosis Specimen A. SKIN, left foot affected: ABSENCE OF EPIDERMAL MELANOCYTES, CONSISTENT WITH VITILIGO (L80) (see microscopic description) Specimen B. SKIN, left foot unaffected: SPARSE SUPERFICIAL PERIVASCULAR LYMPHOCYTIC INFILTRATE (L98.9) (see microscopic description) 4:07 PM [facility] DERMATOPATHOLOGY LABORATORY Clinical History R/o vitiligo vs pipa 4:07 PM [facility] DERMATOPATHOLOGY LABORATORY Gross Description Specimen A: Received is one formalin filled container labeled with the patient's name and designated left foot affected. The specimen consists of a punch biopsy measuring 3x3x2 mm. Jar 0. Specimen B: Received is one formalin filled container labeled with the patient's name and designated left foot unaffected. The specimen consists of a punch biopsy measuring 3x2x2 mm. Jar 0. 4:07 PM [facility] DERMATOPATHOLOGY LABORATORY Microscopic Description Specimen A. SKIN, left foot affected: Sections show loss of melanin pigment from the epidermis, which is conformed on Eustace-Drew stain. A MART-1/Melan-A immunohistochemical stain shows absence of melanocytes along the basal layer. Grocott's methenamine silver (GMS) stain is negative for fungal elements in the sections examined. Additional deeper sections were obtained and reviewed. Specimen B. SKIN, left foot unaffected: In the dermis, there is a sparse perivascular, mainly lymphohistiocytic inflammatory infiltrate. Alda drew stain reveals melanin pigment within the basal layer of the epidermis. MART-1/Melan-A staining highlights regular periodicity of melanocytes along the dermoepidermal junction. Grocott's methenamine silver (GMS) stain is negative for fungal elements in the sections examined. Additional deeper sections were obtained and reviewed. 4:07 PM [facility] DERMATOPATHOLOGY LABORATORY Disclaimer An external and internal positive and negative controls are appropriate for the histochemical, immunohistochemical and immunofluorescence stain(s) in this case (if any), except where stated explicitly. The performance characteristics of the stain(s) cited in this report were developed and its performance characteristic determined by the Dermatopathology Laboratory at [facility], directed by Dr. Jihan Downing. These tests need not be, and therefore are not, approved by the [place] Food and Drug Administration. The tests are used for clinical purposes. Billing Codes Specimen Charges Stain Charges 40457 42369 1 1 25489 [id number] 43545 27241 10146 1 1 1 1 1 1 4 4:07 PM CDT DERMATOPATHOLOGY LABORATORY Embedded Images 4 4:07 PM CDT DERMATOPATHOLOGY LABORATORY Pathology/Cytology TISSUE SPECIMEN FROM SKIN / Unknown 05/19/2024 3:25 PM CDT 05/20/2024 3:50 PM CDT Miscellaneous samples (specimen) TISSUE SPECIMEN FROM SKIN / Unknown 05/19/2024 3:25 PM CDT 05/20/2024 3:50 PM CDT Yulissa Barclay DO LAB - PATHOLOGY/C YTOLOGY ORDERABLES DERMATOPATHOLOGY LABORATORY [facility] - Department of Dermatology [facility] Specialized Medicine [address] [place] [address], [address] [phone] documented in this encounter Visit Diagnoses Not on filedocumented in this encounter
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
--- OUTSIDE RECORDS SUMMARY | 2024-10-13 13:41 | XMS_ITS | Patient Health Summary ---
Author Organization [facility] Address [address] [place] [address] Care Team Providers Care Earth Science Technical Officer Name Role Phone Unavailable Primary Care Provider Unavailabl e Note from [facility],non-owned Affiliates and Associated Physician Practices is amultiple site organization consisting of ambulatory clinics and hospital sitesin [place], [place], [place] and [place]. This disclosure is being madepursuant to the Care Everywhere program and may not contain all information available regarding this patient. Last updated 18.[facility] [employer] Allergies No known active allergies Medications * Be aware that medications may not be up to date on this document. Alwaysverify current medications with the patient. * Cholecalciferol (VITAMIN D PO) * Vit-Fe Fumarate-FA ( PO) Active Problems Problem Noted Date Diagnosed Date Liver lesion 05/19/2018 Social History Tobacco Use Types Packs/Day Years Used Date Smoking Tobacco: Never Smokeless Tobacco: Never Alcohol Use Standard Drinks/Week Comments Yes 0 (1 standard drink = 0.6 oz pur e alcohol) Sex and Gender Information Value Date Recorded Sex Assigned at Not on file Gender Identity Not on file Sexual Orientation Not on file Last Filed Vital Signs Vital Sign Reading Time Taken Comments Blood Pressure 129/77 11/17/2018 11:52 AM CDT Pulse 84 11/17/2018 11:52 AM CDT Temperature 36.7 C (98.1 F) 11/17/2018 11:52 AM CDT Respiratory Rate 20 11/17/2018 11:5 2 AM CDT Oxygen Saturation 100% 11/17/2018 11: 52 AM CDT Inhaled Oxygen Concentration - - Weight 82.5 kg (181 lb 14.4 oz) 019 11:52 AM CDT Height 160 cm (5' 3 ) 11/17/2018 11:52 AM CDT Body Mass Index 32.22 11/17/2018 11:52 AM CDT Procedures * DERMATOPATHOLOGY(Performed 05/19/2024) * MRI ABDOMEN WWO CONTRAST(Performed 07/25/2020) Performed for Liver lesion * CREATININE - POCT INTERFACED(Performed 07/25/2020) * MRI ABDOMEN WWO CONTRAST(Performed 11/17/2018) Performed for Liver lesion * CREATININE BLOOD - POCT (IP) [facility](Performed 11/17/2018) Performed for Liver lesion * PT-INR [facility](Performed 05/19/2018) Performed for Liver lesion * COMPREHENSIVE METABOLIC PANEL(Performed 05/19/2018) Performed for Liver lesion * CBC W AUTO DIFFERENTIAL(Performed 05/19/2018) Performed for Liver lesion * ALPHA FETOPROTEIN BLOOD TUMOR MARKER(Performed 05/19/2018) Performed for Liver lesion * MRI ABDOMEN WWO CONTRAST(Performed 05/19/2018) Performed for Focal nodular hyperplasia of liver * CREATININE BLOOD - POCT (IP) [facility](Performed 05/19/2018) Performed for Focal nodular hyperplasia of liver * MRI ABDOMEN WWO CONTRAST(Performed 05/20/2017) * CREATININE BLOOD - POCT (IP) [facility](Performed 05/20/2017) * CT MICROWAVE ABLATION(Performed 03/19/2017) * HCG URINE QUALITATIVE - POCT (IP) [facility](Performed 03/19/2017) * COMPREHENSIVE METABOLIC PANEL(Performed 03/19/2017) * CBC W AUTO DIFFERENTIAL(Performed 03/19/2017) * PT-INR [facility](Performed 03/19/2017) * CBC W AUTO DIFFERENTIAL(Performed 03/19/2017) * MRI ABDOMEN WWO CONTRAST(Performed 12/11/2016) * MRI PELVIS WWO CONTRAST(Performed 06/24/2016) * MRI ABDOMEN WWO CONTRAST(Performed 06/24/2016) * CREATININE BLOOD - POCT (IP) [facility](Performed 06/24/2016) * ALPHA FETOPROTEIN BLOOD TUMOR MARKER(Performed 12/26/2015) * CANCER ANTIGEN (CA) 19-9(Performed 12/26/2015) * CEA BLOOD(Performed 12/26/2015) * COMPREHENSIVE METABOLIC PANEL(Performed 12/26/2015) * CBC W AUTO DIFFERENTIAL(Performed 12/26/2015) * CBC W AUTO DIFFERENTIAL(Performed 12/26/2015) * MRI PELVIS WWO CONTRAST(Performed 12/21/2015) * MRI ABDOMEN WWO CONTRAST(Performed 12/21/2015) * CREATININE BLOOD - POCT (IP) [facility](Performed 12/21/2015) Results * DERMATOPATHOLOGY (05/19/2024 3:25 PM CDT) Case Report Dermatopathology Report Case: [id number] Authorizing Provider: Yulissa Barclay DO Collected: 05/19/2024 03:25 PM Ordering Location: [facility] - Received: 05/20/2024 03:50 PM DermPath Lab Pathologist: Meena Saleh MD Specimens: A) - Skin, left foot affected B) - Skin, left foot unaffected 4:07 PM CDT DERMATOPATHOLOGY LABORATORY Final Diagnosis Specimen A. SKIN, left foot affected: ABSENCE OF EPIDERMAL MELANOCYTES, CONSISTENT WITH VITILIGO (L80) (see microscopic description) Specimen B. SKIN, left foot unaffected: SPARSE SUPERFICIAL PERIVASCULAR LYMPHOCYTIC INFILTRATE (L98.9) (see microscopic description) 4:07 PM CDT DERMATOPATHOLOGY LABORATORY Clinical History R/o vitiligo vs pipa 4:07 PM CDT DERMATOPATHOLOGY LABORATORY Gross Description Specimen A: Received [...] measuring 3x2x2 mm. Jar 0. 4:07 PM CDT DERMATOPATHOLOGY LABORATORY Microscopic Description Specimen A. SKIN, left foot affected: Sections show loss of melanin pigment from the epidermis, which is conformed on Burson-Drew stain. A MART-1/Melan-A immunohistochemical stain shows absence of melanocytes along the basal layer. Grocott's methenamine silver (GMS) stain is negative for fungal elements in the sections examined. Additional deeper sections were obtained and reviewed. Specimen B. SKIN, left foot unaffected: In the dermis, there is a sparse perivascular, mainly lymphohistiocytic inflammatory infiltrate. Burson drew stain reveals melanin pigment within the basal layer of the epidermis. MART-1/Melan-A staining highlights regular periodicity of melanocytes along the dermoepidermal junction. Grocott's methenamine silver (GMS) stain is negative for fungal elements in the sections examined. Additional deeper sections were obtained and reviewed. 4 4:07 PM CDT DERMATOPATHOLOGY LABORATORY Disclaimer An external and internal positive and negative controls are appropriate for the histochemical, immunohistochemical and immunofluorescence stain(s) in this case (if any), except where stated explicitly. The performance characteristics of the stain(s) cited in this report were developed and its performance characteristic determined by the Dermatopathology Laboratory at [facility], directed by Dr. Jihan Downing. These tests need not be, and therefore are not, approved by the [place] Food and Drug Administration. The tests are used for clinical purposes. Billing Codes Specimen Charges Stain Charges 12812 95948 1 1 98537 [id number] 46128 65734 34504 1 1 1 1 1 1 4 4:07 PM CDT DERMATOPATHOLOGY LABORATORY Embedded Images 4 4:07 PM CDT DERMATOPATHOLOGY LABORATORY Pathology/Cytology TISSUE SPECIMEN FROM SKIN / Unknown 05/19/2024 3:25 PM CDT 05/20/2024 3:50 PM CDT Miscellaneous samples (specimen) TISSUE SPECIMEN FROM SKIN / Unknown 05/19/2024 3:25 PM CDT 05/20/2024 3:50 PM CDT Yulissa Barclay DO LAB - PATHOLOGY/C YTOLOGY ORDERABLES DERMATOPATHOLOGY LABORATORY [facility] - Department of Dermatology [address], [address] [phone] * MRI ABDOMEN WWO CONTRAST (07/25/2020 1:13 PM MEDICAL LEADER) Only the most recent of7 resultswithin the time period is included. Anatomical Region Laterality Modality Abdomen Magnetic Resonan ce 07/25/2020 1:16 PM MEDICAL LEADER Impressions 07/25/2020 3:37 PM MEDICAL LEADER Impression: 1.Post-ablation changes in hepatic segments IVb and 6 without evidence of residual tumor. 2.Unchanged size and appearance of hepatic adenomas, as above. 3.Unchanged size and appearance of focal nodular hyperplasia in segment 7. 4.Mild diffuse hepatic steatosis. Report drafted by Dev Church (resident) I, Dr. ALESSIA ESCUDERO M.D. have personally reviewed and interpreted this examination/study. This report was electronically signed by ALESSIA ESCUDERO M.D. on 07/25/2020 3:37 PM . Narrative 07/25/2020 3:37 PM MEDICAL LEADER Procedure Information DATE: 07/25/2020 1:13 PM EXAMINATION: Magnetic resonance imaging (MRI) of the abdomen without and with contrast TECHNIQUE: MRI of the abdomen was performed prior to and following the uneventful administration of 10 mL of Eovist intravenous gadolinium contrast according to standard protocol. Clinical Information HISTORY: multiple focal nodular hyperplasia and multiple hepatic adenomas status post thermal ablation of hepatic adenomas in hepatic segments 4 and 6 on 03/19/2017 COMPARISON: Abdominal MRI on 11/17/2018 Findings Lower Chest: Normal. Hepatobiliary system Liver morphology: No liver surface nodularity is seen to suggest hepatic cirrhosis. Steatosis: There is mild diffuse hepatic steatosis. Varices: None Spleen: Normal. Ascites: None. Focal liver observations Observations compatible with hepatocellular carcinoma by LI-RADS criteria: None. Indeterminate liver observations: None. Benign liver observations: An ablation cavity in segment 6 has decreased in size at 1.0 x 0.7 cm without abnormal enhancement to suggest recurrent disease (series 11 image 34). An ablation cavity in segment 4B has decreased in size at 1.5 x 0.6 cm without abnormal enhancement to suggest recurrent disease (series 11 image 31). Several arterially enhancing lesions are hypointense on delayed biliary imaging, consistent with adenomas. These are unchanged in size and appearance from the prior MRI. For reference, a 1.3 x 0.7 cm adenoma in segment 8 is unchanged in size (series 7 image 16). There are a few foci of T1 hyperintensity on precontrast images, consistent with small amounts of blood products. A 0.8 x 0.8 cm arterially enhancing lesion in segment 7 has slightly increased in size from the prior study, remaining hyperenhancing on delayed biliary imaging, consistent with FNH (series 7 image 26). Hepatic vasculature Portal and hepatic veins: Patent. Arterial anatomy: The hepatic arterial anatomy is conventional. Gallbladder and bile ducts Gallbladder: The gallbladder is normal without evidence of wall thickening, pericholecystic fluid, or gallstones. Bile ducts: The intrahepatic and extrahepatic bile ducts are nondilated. Retroperitoneum Pancreas: Normal. Adrenals: Normal. Kidneys: Renal cysts are seen. T2 shortening in the right renal collecting system is likely due to hyperconcentrated contrast material. Lymph nodes: No lymphadenopathy in the abdomen or pelvis. Gastrointestinal: Imaged bowel and mesentery are normal. Other findings: Trace intrapelvic free fluid, likely physiologic. Procedure Note Alessia Escudero MD - 07/25/2020 Procedure Information DATE: 07/25/2020 1:13 PM EXAMINATION: Magnetic resonance imaging (MRI) of the abdomen without and with contrast TECHNIQUE: MRI of the abdomen was performed prior to and following the uneventful administration of 10 mL of Eovist intravenous gadolinium contrast according to standard protocol. Clinical Information HISTORY: multiple focal nodular hyperplasia and multiple hepaticadenomas status post thermal ablation of hepatic adenomas in hepatic segments 4and 6 on 03/19/2017 COMPARISON: Abdominal MRI on 11/17/2018 Findings Lower Chest: Normal. Hepatobiliary system Liver morphology: No liver surface nodularity is seen to suggest hepatic cirrhosis. Steatosis: There is mild diffuse hepatic steatosis. Varices: None Spleen: Normal. Ascites: None. Focal liver observations Observations compatible with hepatocellular carcinoma by LI-RADScriteria: None. Indeterminate liver observations: None. Benign liver observations: An ablation cavity in segment 6 has decreased in size at 1.0 x 0.7 cm without abnormal enhancement to suggest recurrent disease (series 11image 34). An ablation cavity in segment 4B has decreased in size at 1.5 x 0.6 cm without abnormal enhancement to suggest recurrent disease (series 11image 31). Several arterially enhancing lesions are hypointense on delayed biliary imaging, consistent with adenomas. These are unchanged in size and appearance from the prior MRI. For reference, a 1.3 x 0.7 cm adenoma in segment 8 is unchanged in size (series 7 image 16). There are a few foci of T1 hyperintensity on precontrast images, consistent with smallamounts of blood products. A 0.8 x 0.8 cm arterially enhancing lesion in segment 7 has slightly increased in size from the prior study, remaining hyperenhancing on delayed biliary imaging, consistent with FNH (series 7 image 26). Hepatic vasculature Portal and hepatic veins: Patent. Arterial anatomy: The hepatic arterial anatomy is conventional. Gallbladder and bile ducts Gallbladder: The gallbladder is normal without evidence of wall thickening, pericholecystic fluid, or gallstones. Bile ducts: The intrahepatic and extrahepatic bile ducts are nondilated. Retroperitoneum Pancreas: Normal. Adrenals: Normal. Kidneys: Renal cysts are seen. T2 shortening in the right renalcollecting system is likely due to hyperconcentrated contrast material. Lymph nodes: No lymphadenopathy in the abdomen or pelvis. Gastrointestinal: Imaged bowel and mesentery are normal. Other findings: Trace intrapelvic free fluid, likely physiologic. Impression: 1.Post-ablation changes in hepatic segments IVb and 6 without evidenceof residual tumor. 2.Unchanged size and appearance of hepatic adenomas, as above. 3.Unchanged size and appearance of focal nodular hyperplasia in segment7. 4.Mild diffuse hepatic steatosis. Report drafted by Dev Church (resident) I, Dr. ALESSIA ESCUDERO M.D. have personally reviewed and interpreted this examination/study. This report was electronically signed by ALESSIA ESCUDERO M.D. on 07/25/2020 3:37 PM . Monse Castro MD MR ORDERABLES * (ABNORMAL) CREATININE - POCT INTERFACED (07/25/2020 12:26 PM MEDICAL LEADER) Creatinine POCT 1.37(H) 0.30 - 1.30 mg/dL 07/25/2020 3:07 PM MEDICAL LEADER [facility] eGFR 52(L) >60 mL/min/1.7 3 m2 07/25/2020 3:07 PM MEDICAL LEADER [facility] Blood BLOOD SPECIMEN / Unknown 07/25/2020 12:26 PM MEDICAL LEADER 07/25/2020 3:07 PM MEDICAL LEADER Monse Castro MD LAB - POINT OF CA RE ORDERABLES [facility] [address] [place] [address], [facility] [phone] * CREATININE BLOOD - POCT (IP) [facility] (11/17/2018 10:45 AM CDT) Only the most recent of5 resultswithin the time period is included. [facility] Creatinine POCT 1.10 0.3 - 1.3 mg/dL [facility] eGFR POCT 60 60 ml/min [facility] Blood BLOOD SPECIMEN / Unknown 11/17/2018 10:45 AM CDT Monse Castro MD LAB - POINT OF CA RE ORDERABLES [facility] [address] [phone] * PT-INR [facility] (05/19/2018 12:56 PM CDT) Only the most recent of2 resultswithin the time period is included. [facility] PT 12.9 12.1 - 14.8 Seconds 05/19/2018 1:42 PM CDT [facility] INR 1.0 See Comment 05/19/2018 1:42 PM CDT [facility] Comment: The suggested therapeutic range for standard coumadin (warfarin) therapy is an INR of 2.0-3.0. For high-risk patients (Mechanical Mitral Valve Prosthesis, etc.), the suggested prophylactic therapeutic range is an INR of 2.5-3.5. Blood BLOOD SPECIMEN / Unknown Lab Venipuncture / Unknown 05/19/2018 12:56 PM CDT 05/19/2018 1:04 PM CDT Monse Castro MD LAB - COAGULATION ORDERABLES Performing Organization Address [facility]/ZIP Co de Phone Number [address] [phone] * ALPHA FETOPROTEIN BLOOD TUMOR (05/19/2018 12:56 PM CDT) Only the most recent of2 resultswithin the time period is included. [facility] Alpha-Fetoprote in Tumor Marker 3.200 <=8.300 ng/mL 05/19/2018 2:22 PM [facility] Comment: AFP values will vary depending on testing procedure used. Results are not comparable across different methods. AFP values obtained in [facility] using a Rene Hai Immunoassay. Blood BLOOD SPECIMEN / Unknown Lab Venipuncture / Unknown 05/19/2018 12:56 PM CDT 05/19/2018 1:04 PM CDT Monse Castro MD LAB - CHEMISTRY O RDERABLES [facility] [address] [place] [address] * (ABNORMAL) CBC WITH DIFFERENTIAL (05/19/2018 12:56 PM CDT) Only the most recent of5 resultswithin the time period is included. WBC 8.0 3.5 - 10.5 10 3/uL 05/19/2018 1:33 PM [facility] RBC 4.69 3.90 - 5.00 10 6/uL 05/19/2018 1:33 PM [facility] Hemoglobin 13.4 12.0 - 15.5 g/dL 05/19/2018 1:33 PM [facility] Hematocrit 39.1 35.0 - 45.0 % 05/19/2018 1:33 PM [facility] MCV 83.4 81.0 - 97.0 fL 05/19/2018 1:33 PM [facility] MCH 28.6 28.0 - 34.0 pg 05/19/2018 1:33 PM [facility] MCHC 34.3 32.0 - 36.0 g/dL 05/19/2018 1:33 PM [facility] Platelet Count 239 150 - 400 10 3/uL 05/19/2018 1:33 PM [facility] RDW-SD 44.7 36.0 - 50.0 fL 05/19/2018 1:33 PM [facility] RDW-CV 14.7 11.2 - 14.8 % 05/19/2018 1:33 PM [facility] MPV 11.7 9.3 - 12.8 fL 05/19/2018 1:33 PM [facility] Neutrophils % 58.5 35.0 - 70.0 % 05/19/2018 1:33 PM [facility] Lymphocytes % 33.0 19.7 - 55.1 % 05/19/2018 1:33 PM [facility] Monocytes % 5.0 3.0 - 15.0 % 05/19/2018 1:33 PM [facility] Eosinophils % 3.1 0.0 - 6.0 % 05/19/2018 1:33 PM [facility] Basophil % 0.4 0.0 - 1.5 % 05/19/2018 1:33 PM [facility] Neutrophils Absolute 4.7 1.6 - 7.0 10 3/uL 05/19/2018 1:33 PM [facility] Lymphocyte Absolute 2.6 0.8 - 2.9 10 3/uL 05/19/2018 1:33 PM [facility] Monocytes Absolute 0.40 0.14 - 0.66 10 3/uL 05/19/2018 1:33 PM [facility] Eosinophils Absolute 0.25(H) 0.00 - 0.22 10 3/uL 05/19/2018 1:33 PM [facility] Basophils Absolute 0.03 0.00 - 0.06 10 3/uL 05/19/2018 1:33 PM [facility] Immature Granulocytes % 0.2 0.0 - 1.0 % 05/19/2018 1:33 PM [facility] Blood BLOOD SPECIMEN / Unknown Lab Venipuncture / Unknown 05/19/2018 12:56 PM CDT 05/19/2018 1:04 PM CDT Monse Castro MD LAB - HEMATOLOGY ORDERABLES [facility] [address] [phone] * COMPREHENSIVE METABOLIC PANEL (05/19/2018 12:56 PM CDT) Only the most recent of3 resultswithin the time period is included. BUN 13 7 - 26 mg/dL 05/19/2018 2:20 PM [facility] Creatinine 1.0 0.6 - 1.2 mg/dL 05/19/2018 2:20 PM [facility] Sodium 137 136 - 145 mmol/L 05/19/2018 2:20 PM [facility] Potassium 3.7 3.5 - 4.5 mmol/L 05/19/2018 2:20 PM [facility] Chloride 104 98 - 107 mmol/L 05/19/2018 2:20 PM [facility] CO2 23 22 - 29 mmol/L 05/19/2018 2:20 PM [facility] Glucose 101 70 - 115 mg/dL 05/19/2018 2:20 PM [facility] Calcium 9.5 8.4 - 10.2 mg/dL 05/19/2018 2:20 PM [facility] Protein Total 7.3 6.0 - 8.3 g/dL 05/19/2018 2:20 PM [facility] Albumin 3.9 3.4 - 5.0 g/dL 05/19/2018 2:20 PM [facility] Bilirubin Total 0.7 0.2 - 1.2 mg/dL 05/19/2018 2:20 PM [facility] Alkaline Phosphatase 82 40 - 150 Units/L 05/19/2018 2:20 PM [facility] ALT 19 0 - 55 Units/L 05/19/2018 2:20 PM [facility] AST 14 5 - 34 Units/L 05/19/2018 2:20 PM [facility] Anion Gap 14 8 - 18 05/19/2018 2:20 PM [facility] BUN/Creatinine Ratio 13 7 - 23 05/19/2018 2:20 PM [facility] Osmolality Calculated 284 270 - 300 mOsm/kg 05/19/2018 2:20 PM [facility] Albumin/Globulin Ratio 1.1 1.1 - 2.3 05/19/2018 2:20 PM [facility] eGFR >60 >60 mL/min/1.7 3 m2 05/19/2018 2:20 PM [facility] Blood BLOOD SPECIMEN / Unknown Lab Venipuncture / Unknown 05/19/2018 12:56 PM CDT 05/19/2018 1:04 PM CDT Monse Castro MD LAB - CHEMISTRY O RDERABLES [address] [phone] * CT MICROWAVE ABLATION (03/19/2017 10:12 AM CDT) Anatomical Region Laterality Modality Other Impressions 03/20/2017 10:05 AM CDT Impression: Successful ultrasound-guided thermal ablation of two segment 6 and 4 hepatic adenomas, as described above. Follow-up: The patient will be contacted by IR to schedule follow-up MRI of the liver with contrast in 6-8 weeks (if patient not ) and subsequent IR clinic visit after imaging is obtained. Dr. Castro was present and performed/supervised the entire procedure.? I, Dr. MONSE CASTRO M.D. have personally reviewed and interpreted this examination/study. This report was electronically signed by MONSE CASTRO M.D. on 03/20/2017 10:05 AM . Narrative 03/20/2017 10:05 AM CDT History: 36 y.o.?female?with multiple hepatic adenomas and FNH. She is concerned about possibility of growth and/or hemorrhage of the adenoma if she becomes . The patient was discussed in Liver Conference and the consensus decision was to proceed with thermal ablation of the two largest adenomas. Operators: 1. Dr. Castro, Attending Physician 2. Dr. Calhoun, IR Fellow Anesthesia: 1. Local anesthesia - 10 mL of 1% lidocaine 2. General anesthesia per the anesthesiology team Procedure: 1. Limited ultrasound evaluation of the liver. 2. Ultrasound-guided thermal ablation of two hepatic segment 6 and 4 masses. 3. Post-ablation contrast-enhanced CT of the liver. Procedure in detail: The procedure, risks, and possible complications were explained to the patient in detail, and informed consent was obtained. The patient was placed in a supine position on the CT table. The patient was given general anesthesia and monitored by the anesthesiology team throughout the procedure. Limited ultrasound evaluation of the liver was performed and showed two hypoechoic masses in segments 6 and 4. The marked site and skin around the region of interest was prepped and draped in sterile fashion. Local anesthesia was provided with 1% Lidocaine. Lesion 6 Lesion: A 17-gauge HI-15 probes were advanced in stages under ultrasound guidance and deployed across the lesion. After confirming the position of the probes, thermal ablation was performed as per protocol (10 minutes at 65W). Lesion 4 Lesion: Another 17 gauge HI-15 probes were advanced in stages under ultrasound guidance and deployed across the lesion. After confirming the position of the probes, thermal ablation was performed as per protocol (10 minutes at 65W). The probes were retrieved after ablating the tract. Sterile dressing was applied. Final contrast-enhanced CT imaging showed satisfactory coverage of both masses without evidence of immediate complications. The patient was extubated and transferred to PACU in stable condition. Procedure Note Monse Castro MD - 11/06/2017 History: 36 y.o.?female?with multiple hepatic adenomas and FNH. She isconcerned about possibility of growth and/or hemorrhage of the adenoma ifshe becomes . The patient was discussed in Liver Conference andthe consensus decision was to proceed with thermal ablation of the two largest adenomas. Operators: 1. Dr. Castro, Attending Physician 2. Dr. Calhoun, IR Fellow Anesthesia: 1. Local anesthesia - 10 mL of 1% lidocaine 2. General anesthesia per the anesthesiology team Procedure: 1. Limited ultrasound evaluation of the liver. 2. Ultrasound-guided thermal ablation of two hepatic segment 6 and 4masses. 3. Post-ablation contrast-enhanced CT of the liver. Procedure in detail: The procedure, risks, and possible complications wereexplained to the patient in detail, and informed consent was obtained. Thepatient was placed in a supine position on the CT table. The patient wasgiven general anesthesia and monitored by the anesthesiology team throughout the procedure. Limited ultrasound evaluation of the liver was performed and showed twohypoechoic masses in segments 6 and 4. The marked site and skin around the region of interest was prepped anddraped in sterile fashion. Local anesthesia was provided with 1%Lidocaine. Lesion 6 Lesion: A 17-gauge HI-15 probes were advanced in stages underultrasound guidance and deployed across the lesion. After confirming theposition of the probes, thermal ablation was performed as per protocol (10minutes at 65W). Lesion 4 Lesion: Another 17 gauge HI-15 probes were advanced in stagesunder ultrasound guidance and deployed across the lesion. After confirmingthe position of the probes, thermal ablation was performed as per protocol(10 minutes at 65W). The probes were retrieved after ablating the tract. Sterile dressing wasapplied. Final contrast-enhanced CT imaging showed satisfactory coverage of bothmasses without evidence of immediate complications. The patient wasextubated and transferred to PACU in stable condition. IMPRESSION Impression: Successful ultrasound-guided thermal ablation of two segment 6and 4 hepatic adenomas, as described above. Follow-up: The patient will be contacted by IR to schedule follow-up MRIof the liver with contrast in 6-8 weeks (if patient not ) andsubsequent IR clinic visit after imaging is obtained. Dr. Castro was present and performed/supervised the entire procedure.? I, Dr. MONSE CASTRO M.D. have personally reviewed and interpretedthis examination/study. This report was electronically signed by MONSE CASTRO M.D. on03/20/2017 10:05 AM . Michael Courtney MD CT ORDERABLES * HCG URINE QUALITATIVE - POCT (IP) [facility] (03/19/2017 7:03 AM CDT) NEGATIVE [facility] ([place]) Comment:Child Welfare Social Worker: KAREN HUMPHREY MMY 03/19/2017 7:03 AM CDT Michael Courtney MD LAB - POINT OF CARE ORDERABLES [facility] ([place]) * MRI PELVIS WWO CONTRAST (06/24/2016 7:21 PM MEDICAL LEADER) Only the most recent of2 resultswithin the time period is included. Anatomical Region Laterality Modality Pelvis Other Impressions 06/25/2016 1:52 PM MEDICAL LEADER IMPRESSION: 1. Two lesions of focal nodular hyperplasia in hepatic segments 4b and 7 without interval change. 2. At least 5 hepatic adenomas in the right hepatic lobe, some of which are unchanged and appear minimally smaller. No new focal hepatic lesion is identified. 3. Mild diffuse hepatic steatosis. Report dictated by Roberto Butler DO (commercial lending vice president). This report was approved by Roberto Butler on 06/25/2016 1:52 PM . I, Dr. SAYDA JACKSON M.D. have personally reviewed and interpreted this examination/study. This report was electronically signed by SAYDA JACKSON M.D. on 06/25/2016 1:52 PM . Narrative 06/25/2016 1:52 PM MEDICAL LEADER EXAMINATION: Magnetic resonance imaging (MRI) of the abdomen and pelvis without and with contrast HISTORY: 35-year-old female with focal nodular hyperplasia and hepatic adenomas. TECHNIQUE: MRI of the abdomen and pelvis was performed prior to and following the uneventful administration of 7.5 mL Eovist intravenous gadolinium contrast according to standard protocol. COMPARISON: Comparison is made with a study from 12/21/2015 and an outside institution MRI dated 10/29/2015. FINDINGS: Abdomen: The visible lung bases are clear. Multiple cysts are again seen in both breasts, the largest of which measuring 0.6 x 1.0 cm in the left breast, unchanged. There is mild diffuse hepatic steatosis. The hepatic contour is normal without evidence of cirrhosis. A hepatic segment IVb lesion abutting the liver capsule is similar in size measuring 2.4 x 1.9 cm (series 33, image 46). It continues to demonstrate arterial hyperenhancment and hyperintensity on the hepatobiliary phase images with a central scar consistent with a focal nodular hyperplasia. A hepatic segment 7 lesion measures 0.8 cm x 0.7 cm (series 33, image 35). It also demonstrates arterial hyperenhancement and hyperintensity on hepatobiliary images consistent with a focal nodular hyperplasia. At least 5 arterial enhancing hepatic lesions with hypointense signal on hepatobiliary phase images most compatible with hepatic adenomas are again noted, some stable in size and a few minimally decreased in size. For reference, the largest lesion in hepatic segment 6 is unchanged, measuring 2.2 cm (series 34, image 53). A 10 mm arterial enhancing lesion in hepatic segment 8 with hypointense signal on the hepatobiliary phase, previously measured 1.3 cm (series 32 image 22). A tiny simple cyst is again seen in hepatic segment 6. The intrahepatic and extrahepatic bile ducts are not dilated. The hepatic arterial anatomy is conventional. The portal vein and its major branches are patent. The hepatic veins are patent. The gallbladder, pancreas, spleen, and adrenals are normal. Multiple simple cysts are again seen on both kidneys, the largest of which measuring 1 cm in the upper pole of the left kidney. No free intraperitoneal fluid is identified. Pelvis: The bladder is distended with fluid and appears normal. Multiple small uterine fibroids are again seen. The largest located within the anterior uterine body measures 1.6 cm. The ovaries appear normal. No free pelvic fluid is identified. Procedure Note Sayda Jackson MD - 11/07/2017 EXAMINATION: Magnetic resonance imaging (MRI) of the abdomen and pelviswithout and with contrast HISTORY: 35-year-old female with focal nodular hyperplasia and hepaticadenomas. TECHNIQUE: MRI of the abdomen and pelvis was performed prior to andfollowing the uneventful administration of 7.5 mL Eovist intravenousgadolinium contrast according to standard protocol. COMPARISON: Comparison is made with a study from 12/21/2015 and an outsideinstitution MRI dated 10/29/2015. FINDINGS: Abdomen: The visible lung bases are clear. Multiple cysts are again seen in bothbreasts, the largest of which measuring 0.6 x 1.0 cm in the left breast,unchanged. There is mild diffuse hepatic steatosis. The hepatic contour is normalwithout evidence of cirrhosis. A hepatic segment IVb lesion abutting the liver capsule is similar in sizemeasuring 2.4 x 1.9 cm (series 33, image 46). It continues to demonstratearterial hyperenhancment and hyperintensity on the hepatobiliary phaseimages with a central scar consistent with a focal nodular hyperplasia. A hepatic segment 7 lesionmeasures 0.8 cm x 0.7 cm (series 33, image 35). It also demonstratesarterial hyperenhancement and hyperintensity on hepatobiliary imagesconsistent with a focal nodular hyperplasia. At least 5 arterial enhancing hepatic lesions with hypointense signal onhepatobiliary phase images most compatible with hepatic adenomas are againnoted, some stable in size and a few minimally decreased in size. Forreference, the largest lesion in hepatic segment 6 is unchanged, measuring 2.2 cm (series 34, image 53). A10 mm arterial enhancing lesion in hepatic segment 8 with hypointensesignal on the hepatobiliary phase, previously measured 1.3 cm (series 32image 22). A tiny simple cyst is again seen in hepatic segment 6. The intrahepatic and extrahepatic bile ducts are not dilated. The hepaticarterial anatomy is conventional. The portal vein and its major branchesare patent. The hepatic veins are patent. The gallbladder, pancreas, spleen, and adrenals are normal. Multiplesimple cysts are again seen on both kidneys, the largest of whichmeasuring 1 cm in the upper pole of the left kidney. No freeintraperitoneal fluid is identified. Pelvis: The bladder is distended with fluid and appears normal. Multiple smalluterine fibroids are again seen. The largest located within the anterioruterine body measures 1.6 cm. The ovaries appear normal. No free pelvicfluid is identified. IMPRESSION IMPRESSION: 1. Two lesions of focal nodular hyperplasia in hepatic segments 4b and 7without interval change. 2. At least 5 hepatic adenomas in the right hepatic lobe, some of whichare unchanged and appear minimally smaller. No new focal hepatic lesion isidentified. 3. Mild diffuse hepatic steatosis. Report dictated by Roberto Butler DO (commercial lending vice president). This report was approved by Roberto Butler on 06/25/2016 1:52 PM . I, Dr. SAYDA JACKSON M.D. have personally reviewed and interpreted thisexamination/study. This report was electronically signed by SAYDA JACKSON M.D. on 06/25/20161:52 PM . Yakov Hargrove MD MR ORDERABLES * CANCER ANTIGEN (CA) 19-9 (12/26/2015 1:37 PM CDT) CA 19-9 1 0 - 35 U/mL [facility]) Comment:Rene ECLIA methodol ogy Blood specimen (specimen) BLOOD SPECIMEN / Unknown 12/26/2015 1:37 PM CDT 12/26/2015 2:01 PM CDT Narrative [facility] ([facility]) - 12/27/2015 8:34 AM CDT Performed at: [address] [place] [address] [id number] Media Services Specialist: Collins Tabor PhD, Phone: [phone] Yakov Hargrove MD LAB - CHEMISTRY [facility] ([place]) * CEA BLOOD (12/26/2015 1:37 PM CDT) CEA 1.1 <=5.0 ng/mL [facility] Blood specimen (specimen) BLOOD SPECIMEN / Unknown 12/26/2015 1:37 PM CDT 12/26/2015 2:01 PM CDT Yakov Hargrove MD LAB - CHEMISTRY [facility] [address] [phone]
--- OUTSIDE RECORDS SUMMARY | 2024-10-13 13:41 | XMS_ITS | Clinical Summary ---
Author Organization [facility] [employer] Address [address] [place] [address] Care Team Providers Care Discharge Coordinator Name Role Phone Unavailable Primary Care Provider Unavailabl e Source Comments [facility],non-owned Affiliates and Associated Physician Practices is amultiple site organization consisting of ambulatory clinics and hospital sitesin [place], [place], [place] and [place]. This disclosure is being madepursuant to the Care Everywhere program and may not contain all information available regarding this patient. Last updated 18.[facility] [employer] Allergies No known active allergies Medications * Be aware that medications may not be up to date on this document. Alwaysverify current medications with the patient. Medication Sig Dispensed Refills Start Date End Date Status Cholecalciferol (VITAMIN D PO) Active Vit-Fe Fumarate-FA ( PO) Active Active Problems Problem Noted Date Diagnosed Date Liver lesion 05/19/2018 Family History Medical History Relation Name Comments CVA Maternal Grandmother Arthritis Mother Asthma Mother Diabetes Mother Hearing Loss Mother Hypertension Mother Asthma Sister Relation Name Status Comments Maternal Grandmother Mother Sister Social History Tobacco Use Types Packs/Day Years [...] Mass Index 32.22 11/17/2018 11:52 AM CDT Plan of Treatment Health Maintenance Due Date Last Done Comments LIPID TESTING 1979 MAMMOGRAM 1979 PAP SMEAR 1979 HIV SCREENING 10/18/1994 HEPATITIS C SCREENING 10/14/1997 DTAP/TDAP/TD VACCINES (1 - Tdap) 10/18/1998 HEPATITIS B VACCINE (1 of 3 - 19+ 3-dose series) 10/18/1998 COVID-19 VACCINE (2023-2 5 season) 2024 INFLUENZA VACCINE (#1) 2024 DEPRESSION SCREENING 08/10/2024 ZOSTER VACCINE (1 of 2) 10/18/2029 HIB VACCINE Aged Out No longer eligi ble based on patient's age to complete this topic HPV VACCINE Aged Out No longer eligi ble based on patient's age to complete this topic MENINGOCOCCAL (Group B) VACCINE Aged Out No longer eligible based on patient's age to complete this topic MENINGOCOCCAL VACCINE Aged Out No bossman triston eligible based on patient's age to complete this topic PNEUMOCOCCAL VACCINE Aged Out No long er eligible based on patient's age to complete this topic [place] Personal/Famil y Spouse [address] [place] [address]
--- OUTSIDE RECORDS SUMMARY | 2024-10-13 13:41 | XMS_ITS | Referral Summary ---
Author Organization [facility] Address [address] [place] [address] Care Team Providers Care Legal Financial Specialist Name Role Phone Unavailable Primary Care Provider Unavailabl e Source Comments [facility],non-owned Affiliates and Associated Physician Practices is amultiple site organization consisting of ambulatory clinics and hospital sitesin [place], [place], [place] and [place]. This disclosure is being madepursuant to the Care Everywhere program and may not contain all information available regarding this patient. Last updated 18.[facility] [employer] Allergies No known active allergies Medications * [...] 11/17/2018 11:52 AM CDT Plan of Treatment Not on file
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
== END 2024-10-13 12:05 | disposition home or self-care (01) ==
PROVIDERS: PCP Family Medicine; Visit Provider Student in an Organized Health Care Education/Training Program
DX: Z30.2 Encounter for sterilization (principal)
CPT/HCPCS: 36415; 85027

== ENCOUNTER 2024-10-20 00:17 | Day surgery (SDC) | payer OTHER, SELFPAY ==
[2024-10-07 14:15] VITALS: BMI 31.7
--- NOTE | 2024-10-07 14:20 | SUR.PREOP ---
Report to the Outpatient Waiting Room, entrance under the green pavilion located off [facility], at time 1100 on date 10/20/24. Planned Procedure Time: 1300.? Time changes happen often and if your time is changed the preop area will call you the afternoon before. - You and your visitor will be asked to self-screen and do not enter if you have any COVID symptoms. Please call surgeon if you need to reschedule. - A mask is optional within the hospital at this time. Patients may have clear liquids (water, carbonated beverages, clear teas, apple juice) until 3 hours prior to surgery with a maximum of 20 ounces. - No food from midnight until time of surgery and no smoking, or chewing tobacco (or any form of nicotine). No chewing gum, candy or mints. - Infants may have breast milk until 4 hours before surgery, formula 6 hours prior to surgery. - Children will be allowed to drink immediately following surgery.? If applicable, please bring a bottle or sippy cup to assist with drinking. Juice, water, soda, and popsicles are readily available.? For infants on formula, please bring formula the day of surgery.? Pacifiers are allowed. Take only the following medications with a SIP of water on the morning of surgery: n/a DO NOT STOP ANY OF YOUR OTHER PRESCRIPTION MEDICATIONS PRIOR TO SURGERY EXCEPT THE FOLLOWING Hold all vitamins and supplements for 3 days per anesthesiologist. Medications to discontinue per physician n/a Date to take last dose Please no make-up, nail telugu, hairspray, perfume, deodorant, or body powder the day of surgery.? No jewelry (including any body piercings) or valuables the day of surgery, leave them at home.? Please take a shower or bath the night before, or the morning of, surgery with an antibacterial soap.? Wear comfortable, loose fitting clothing.? Children are encouraged to wear pajamas. - Jewelry must be removed prior to entering the operating room.? Rings and piercings that are not removed may be cut off. - The hospital will not accept responsibility for valuables.? - Please leave all valuables, including medications, at home the day of surgery. If you are going home after surgery, a licensed cdl driver must drive you home.? - NO public transportation without another adult if you receive anesthesia. - We recommend that an adult stay with you for 24 hours following discharge. - We also recommend that you do not drive, make important decision, drink alcoholic beverages, or take any drugs that were not prescribed by your health care provider for at least 24 hours after your discharge time. For Pediatric surgeries, we recommend two adults accompany the child home. Follow any additional instructions given to you from your surgeon. Telephone instructions given to __patient__and asked if any additional questions and then verbalized understanding. Patient advised to call surgeon office or pre surgery nurse liaison [phone] if any additional questions.
[2024-10-20] VITALS (11 sets, daily range): BP systolic 127–140; BP diastolic 67–90; PULSE 82–104; RESP 12–20; TEMP 36.9; O2SAT 94–100; BMI 32.1
--- OUTSIDE RECORDS SUMMARY | 2024-10-20 00:19 | XMS_ITS | Clinical Summary ---
Author Organization [facility] [employer] Address [address] [facility] [place] [address] Care Team Providers Care Manpower Development Specialist Manager Name Role Phone Unavailable Primary Care Provider Unavailabl e Source Comments [facility],non-owned Affiliates and Associated Physician Practices is amultiple site organization consisting of ambulatory clinics and hospital sitesin [place], [place], [place] and [place]. This disclosure is being madepursuant to the Care Everywhere program and may not contain all information available regarding this patient. Last updated 18.[facility] [employer] Allergies No known active allergies Medications * [...] to complete this topic MENINGOCOCCAL (Group B) VACC INE SHARED DECISION-MAKING Aged Out No longer eligibl e based on patient's age to complete this topic MENINGOCOCCAL GROUPS A/C/Y/W VACCINE Aged Out No longer eligible b ased on patient's age to complete this topic PNEUMOCOCCAL VACCINE Aged Out No long er eligible based on patient's age to complete this topic China Nguyen Personal/Famil y Self 1980 [facility] [place] [address] CHINA NGUYEN Personal/Famil y Spouse [address] [place] [address] CHINA NGUYEN Personal/Famil y Spouse [address] [place] [address] CHINA NGUYEN Personal/Famil y Spouse [address] [place] [address] CHIDI,CHINA Personal/Famil y Spouse [address] [place] [address]
--- OUTSIDE RECORDS SUMMARY | 2024-10-20 00:19 | XMS_ITS | Clinical Summary ---
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
--- OUTSIDE RECORDS SUMMARY | 2024-10-20 00:19 | XMS_ITS | Encounter Summary ---
Author Organization [facility] Address [address] [facility] [place] [address] Care Team Providers Care Process Coordinator Name Role Phone Unavailable Primary Care Provider Unavailabl e Encounter Details Date Type Department Care Team (Late st Contact Info) Description 05/19/2024 Lab Requisition [facility] - DermPath Lab [address] [facility] [address], [facility] [place] [phone] Yulissa Barclay DO [address] [facility] [address] [place] [address] Social History Tobacco Use Types Packs/Day Years [...] PM CDT) Case Report Dermatopathology Report Case: [id number] Authorizing Provider: Yulissa Barclay DO Collected: 05/19/2024 03:25 PM Ordering Location: [facility] - Received: 05/20/2024 03:50 PM DermPath Lab Pathologist: Meena Saleh MD Specimens: A) - Skin, left foot affected B) - Skin, left foot unaffected 4:07 PM [facility] DERMATOPATHOLOGY LABORATORY Final Diagnosis Specimen A. SKIN, left foot affected: ABSENCE OF EPIDERMAL MELANOCYTES, CONSISTENT WITH VITILIGO (L80) (see microscopic description) Specimen B. SKIN, left foot unaffected: SPARSE SUPERFICIAL PERIVASCULAR LYMPHOCYTIC INFILTRATE (L98.9) (see microscopic description) 4:07 PM [facility] DERMATOPATHOLOGY LABORATORY Clinical History R/o vitiligo vs pipa 4:07 PM [facility] DERMATOPATHOLOGY LABORATORY Gross Description Specimen A: Received [...] measuring 3x2x2 mm. Jar 0. 4:07 PM [facility] DERMATOPATHOLOGY LABORATORY Microscopic Description Specimen A. SKIN, left foot affected: Sections show loss of melanin pigment from the epidermis, which is conformed on Alda-Drew stain. A MART-1/Melan-A immunohistochemical stain shows absence [...] sections were obtained and reviewed. 4:07 PM [facility] DERMATOPATHOLOGY LABORATORY Disclaimer An external and internal positive and negative controls are appropriate for the histochemical, immunohistochemical and immunofluorescence stain(s) in this case (if any), except where stated explicitly. The performance characteristics of the stain(s) cited in this report were developed and its performance characteristic determined by the Dermatopathology Laboratory at [facility], directed by Dr. Jihan Downing. These tests need not be, and therefore are not, approved by the [place] Food and Drug Administration. The tests are used for clinical purposes. Billing Codes Specimen Charges Stain Charges 79385 [id number] 1 1 [id number] [id number] [id number] 21686 [id number] 93038 1 1 1 1 1 1 4 4:07 PM CDT DERMATOPATHOLOGY LABORATORY Embedded Images 4 4:07 PM CDT DERMATOPATHOLOGY LABORATORY Pathology/Cytology TISSUE SPECIMEN FROM SKIN / Unknown 05/19/2024 3:25 PM CDT 05/20/2024 3:50 PM CDT Miscellaneous samples (specimen) TISSUE SPECIMEN FROM SKIN / Unknown 05/19/2024 3:25 PM CDT 05/20/2024 3:50 PM CDT Yulissa Barclay DO LAB - PATHOLOGY/C YTOLOGY ORDERABLES DERMATOPATHOLOGY LABORATORY [facility] - Department of Dermatology [facility] Specialized Medicine [address] [place] [address], [address] [phone] documented in this encounter Visit Diagnoses Not on filedocumented in this encounter
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
--- OUTSIDE RECORDS SUMMARY | 2024-10-20 00:20 | XMS_ITS | Referral Summary ---
Author Organization [facility] Address [address] [place] [address] Care Team Providers Care Sponge Diver Name Role Phone Unavailable Primary Care Provider Unavailabl e Source Comments [facility],non-owned Affiliates and Associated Physician Practices is amultiple site organization consisting of ambulatory clinics and hospital sitesin [place] and [place]. This disclosure is being madepursuant to the Care Everywhere program and may not contain all information available regarding this patient. Last updated 18.[facility] [employer] Allergies No known active allergies Medications * [...]
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
--- OUTSIDE RECORDS SUMMARY | 2024-10-20 00:20 | XMS_ITS | Patient Health Summary ---
Author Organization [facility] Address [address] [place] [address] Care Team Providers Care Manufacturer Representative Name Role Phone Unavailable Primary Care Provider Unavailabl e Note from [facility],non-owned Affiliates and Associated Physician Practices is amultiple site organization consisting of ambulatory clinics and hospital sitesin [place], [place], [place] and [place]. This disclosure is being madepursuant to the Care Everywhere program and may not contain all information available regarding this patient. Last updated 18.[facility] [employer] Allergies No known active allergies Medications * [...] PM CDT) Case Report Dermatopathology Report Case: [id number] Authorizing Provider: Yulissa Barclay DO Collected: 05/19/2024 03:25 PM Ordering Location: [facility] - Received: 05/20/2024 03:50 PM [...] from the epidermis, which is conformed on Payson-Drew stain. A MART-1/Melan-A immunohistochemical stain shows absence [...] characteristic determined by the Dermatopathology Laboratory at [facility], directed by Dr. Jihan Downing. These tests need not be, and therefore are not, approved by the [place] Food and Drug Administration. The tests are used for clinical purposes. Billing Codes Specimen Charges Stain Charges 34067 79668 1 1 [id number] 09313 36114 [id number] 1 1 1 1 1 1 4 4:07 PM CDT DERMATOPATHOLOGY LABORATORY Embedded Images 4 4:07 PM CDT DERMATOPATHOLOGY LABORATORY Pathology/Cytology TISSUE SPECIMEN FROM SKIN / Unknown 05/19/2024 3:25 PM CDT 05/20/2024 3:50 PM CDT Miscellaneous samples (specimen) TISSUE SPECIMEN FROM SKIN / Unknown 05/19/2024 3:25 PM CDT 05/20/2024 3:50 PM CDT Yulissa Barclay DO LAB - PATHOLOGY/C YTOLOGY ORDERABLES DERMATOPATHOLOGY LABORATORY [facility] - Department of Dermatology [address], [address] Floor [address] [phone] * MRI ABDOMEN WWO CONTRAST (07/25/2020 1:13 PM WATCH REPAIR PERSON) Only the most recent of7 resultswithin the time period is included. Anatomical Region Laterality Modality Abdomen Magnetic Resonan ce 07/25/2020 1:16 PM WATCH REPAIR PERSON Impressions 07/25/2020 3:37 PM WATCH REPAIR PERSON Impression: 1.Post-ablation changes in hepatic segments IVb [...] 3:37 PM . Narrative 07/25/2020 3:37 PM WATCH REPAIR PERSON Procedure Information DATE: 07/25/2020 1:13 PM EXAMINATION: [...] CREATININE - POCT INTERFACED (07/25/2020 12:26 PM WATCH REPAIR PERSON) Creatinine POCT 1.37(H) 0.30 - 1.30 mg/dL 07/25/2020 3:07 PM WATCH REPAIR PERSON [facility] eGFR 52(L) >60 mL/min/1.7 3 m2 07/25/2020 3:07 PM WATCH REPAIR PERSON [facility] Blood BLOOD SPECIMEN / Unknown 07/25/2020 12:26 PM WATCH REPAIR PERSON 07/25/2020 3:07 PM WATCH REPAIR PERSON Monse Castro MD LAB - POINT OF CA RE ORDERABLES [facility] [address] [place] [address], [facility] [phone] * CREATININE BLOOD - POCT (IP) [facility] (11/17/2018 10:45 AM CDT) Only the most recent of5 resultswithin the time period is included. [facility] Creatinine POCT 1.10 0.3 - 1.3 mg/dL [facility] POCT TESTING eGFR POCT 60 60 ml/min [facility] Blood BLOOD SPECIMEN / Unknown 11/17/2018 10:45 AM CDT Monse Castro MD LAB - POINT OF CA RE ORDERABLES [facility] POCT TESTING [address] [phone] * PT-INR [facility] (05/19/2018 12:56 PM CDT) Only the most recent of2 resultswithin the time period is included. [facility] PT 12.9 12.1 - 14.8 Seconds 05/19/2018 1:42 PM CDT [facility] INR 1.0 See Comment 05/19/2018 1:42 PM CDT [facility] Comment: The suggested therapeutic range for standard coumadin (warfarin) therapy is an INR of 2.0-3.0. For high-risk patients (Mechanical Mitral Valve Prosthesis, etc.), the suggested prophylactic therapeutic range is an INR of 2.5-3.5. Blood BLOOD SPECIMEN / Unknown Lab Venipuncture / Unknown 05/19/2018 12:56 PM CDT 05/19/2018 1:04 PM CDT Monse Castro MD LAB - COAGULATION ORDERABLES Performing Organization Address [facility]/ZIP Co de Phone Number [address] [phone] * ALPHA FETOPROTEIN BLOOD TUMOR (05/19/2018 12:56 PM CDT) Only the most recent of2 resultswithin the time period is included. [facility] Alpha-Fetoprote in Tumor Marker 3.200 <=8.300 ng/mL 05/19/2018 2:22 PM [facility] Comment: AFP values will vary depending on testing procedure used. Results are not comparable across different methods. AFP values obtained in [facility] using a Rene Hai Immunoassay. Blood BLOOD SPECIMEN / Unknown Lab Venipuncture / Unknown 05/19/2018 12:56 PM CDT 05/19/2018 1:04 PM CDT Monse Castro MD LAB - CHEMISTRY O RDERABLES [facility] [address] [place] [address] * (ABNORMAL) CBC WITH DIFFERENTIAL (05/19/2018 12:56 PM CDT) Only the most recent of5 resultswithin the time period is included. WBC 8.0 3.5 - 10.5 10 3/uL 05/19/2018 1:33 PM [facility] RBC 4.69 3.90 - 5.00 10 6/uL 05/19/2018 1:33 PM [facility] Hemoglobin 13.4 12.0 - 15.5 g/dL 05/19/2018 1:33 PM [facility] Hematocrit 39.1 35.0 - 45.0 % 05/19/2018 1:33 PM [facility] MCV 83.4 81.0 - 97.0 fL 05/19/2018 1:33 PM [facility] MCH 28.6 28.0 - 34.0 pg 05/19/2018 1:33 PM [facility] MCHC 34.3 32.0 - 36.0 g/dL 05/19/2018 1:33 PM [facility] Platelet Count 239 150 - 400 10 3/uL 05/19/2018 1:33 PM [facility] RDW-SD 44.7 36.0 - 50.0 fL 05/19/2018 1:33 PM [facility] RDW-CV 14.7 11.2 - 14.8 % 05/19/2018 1:33 PM [facility] MPV 11.7 9.3 - 12.8 fL 05/19/2018 1:33 PM [facility] Neutrophils % 58.5 35.0 - 70.0 % 05/19/2018 1:33 PM [facility] Lymphocytes % 33.0 19.7 - 55.1 % 05/19/2018 1:33 PM [facility] Monocytes % 5.0 3.0 - 15.0 % 05/19/2018 1:33 PM [facility] Eosinophils % 3.1 0.0 - 6.0 % 05/19/2018 1:33 PM [facility] Basophil % 0.4 0.0 - 1.5 % 05/19/2018 1:33 PM [facility] Neutrophils Absolute 4.7 1.6 - 7.0 10 3/uL 05/19/2018 1:33 PM [facility] Lymphocyte Absolute 2.6 0.8 - 2.9 10 3/uL 05/19/2018 1:33 PM [facility] Monocytes Absolute 0.40 0.14 - 0.66 10 3/uL 05/19/2018 1:33 PM [facility] Eosinophils Absolute 0.25(H) 0.00 - 0.22 10 3/uL 05/19/2018 1:33 PM [facility] Basophils Absolute 0.03 0.00 - 0.06 10 3/uL 05/19/2018 1:33 PM [facility] Immature Granulocytes % 0.2 0.0 - 1.0 % 05/19/2018 1:33 PM [facility] Blood BLOOD SPECIMEN / Unknown Lab Venipuncture / Unknown 05/19/2018 12:56 PM CDT 05/19/2018 1:04 PM CDT Monse Castro MD LAB - HEMATOLOGY ORDERABLES [facility] [address] [phone] * COMPREHENSIVE METABOLIC PANEL (05/19/2018 12:56 PM CDT) Only the most recent of3 resultswithin the time period is included. BUN 13 7 - 26 mg/dL 05/19/2018 2:20 PM [facility] Creatinine 1.0 0.6 - 1.2 mg/dL 05/19/2018 2:20 PM [facility] Sodium 137 136 - 145 mmol/L 05/19/2018 2:20 PM [facility] Potassium 3.7 3.5 - 4.5 mmol/L 05/19/2018 2:20 PM [facility] Chloride 104 98 - 107 mmol/L 05/19/2018 2:20 PM [facility] CO2 23 22 - 29 mmol/L 05/19/2018 2:20 PM [facility] Glucose 101 70 - 115 mg/dL 05/19/2018 2:20 PM [facility] Calcium 9.5 8.4 - 10.2 mg/dL 05/19/2018 2:20 PM [facility] Protein Total 7.3 6.0 - 8.3 g/dL 05/19/2018 2:20 PM [facility] Albumin 3.9 3.4 - 5.0 g/dL 05/19/2018 2:20 PM [facility] Bilirubin Total 0.7 0.2 - 1.2 mg/dL 05/19/2018 2:20 PM [facility] Alkaline Phosphatase 82 40 - 150 Units/L 05/19/2018 2:20 PM [facility] ALT 19 0 - 55 Units/L 05/19/2018 2:20 PM [facility] AST 14 5 - 34 Units/L 05/19/2018 2:20 PM [facility] Anion Gap 14 8 - 18 05/19/2018 2:20 PM [facility] BUN/Creatinine Ratio 13 7 - 23 05/19/2018 2:20 PM [facility] Osmolality Calculated 284 270 - 300 mOsm/kg 05/19/2018 2:20 PM [facility] Albumin/Globulin Ratio 1.1 1.1 - 2.3 05/19/2018 2:20 PM [facility] eGFR >60 >60 mL/min/1.7 3 m2 05/19/2018 2:20 PM [facility] Blood BLOOD SPECIMEN / Unknown Lab Venipuncture / Unknown 05/19/2018 12:56 PM CDT 05/19/2018 1:04 PM CDT Monse Castro MD LAB - CHEMISTRY O RDERABLES [address] [phone] * CT MICROWAVE ABLATION (03/19/2017 10:12 AM [...] 1% Lidocaine. Lesion 6 Lesion: A 17-gauge CT-15 probes were advanced in stages under ultrasound guidance and deployed across the lesion. After confirming the position of the probes, thermal ablation was performed as per protocol (10 minutes at 65W). Lesion 4 Lesion: Another [address]-15 probes were advanced in stages under ultrasound [...] with 1%Lidocaine. Lesion 6 Lesion: A 17-gauge CT-15 probes were advanced in stages underultrasound guidance and deployed across the lesion. After confirming theposition of the probes, thermal ablation was performed as per protocol (10minutes at 65W). Lesion 4 Lesion: Another [address]-15 probes were advanced in stagesunder ultrasound guidance [...] * HCG URINE QUALITATIVE - POCT (IP) [facility] (03/19/2017 7:03 AM CDT) NEGATIVE [facility] ([place]) Comment:Broach Trouble Shooter: KAREN HUMPHREY MMY 03/19/2017 7:03 AM CDT Michael Courtney MD LAB - POINT OF CARE ORDERABLES [facility] ([place]) * MRI PELVIS WWO CONTRAST (06/24/2016 7:21 PM WATCH REPAIR PERSON) Only the most recent of2 resultswithin the time period is included. Anatomical Region Laterality Modality Pelvis Other Impressions 06/25/2016 1:52 PM WATCH REPAIR PERSON IMPRESSION: 1. Two lesions of focal nodular hyperplasia in hepatic segments 4b and 7 without interval change. 2. At least 5 hepatic adenomas in the right hepatic lobe, some of which are unchanged and appear minimally smaller. No new focal hepatic lesion is identified. 3. Mild diffuse hepatic steatosis. Report dictated by Roberto Butler DO (radiology scheduler). This report was approved by Roberto Butler on 06/25/2016 1:52 PM . I, Dr. SAYDA JACKSON M.D. have personally reviewed and interpreted this examination/study. This report was electronically signed by SAYDA JACKSON M.D. on 06/25/2016 1:52 PM . Narrative 06/25/2016 1:52 PM WATCH REPAIR PERSON EXAMINATION: Magnetic resonance imaging (MRI) of the [...] Mild diffuse hepatic steatosis. Report dictated by Roberot Butler DO (radiology scheduler). This report was approved by Roberto Butler on 06/25/2016 1:52 PM . I, Dr. SAYDA JACKSON M.D. have personally reviewed and interpreted thisexamination/study. This report was electronically signed by SAYDA JACKSON M.D. on 06/25/20161:52 PM . Yakov Hargrove MD MR ORDERABLES * CANCER ANTIGEN (CA) 19-9 (12/26/2015 1:37 PM CDT) CA 19-9 1 0 - 35 U/mL [facility] (ErrplaneAKER) Comment:Rene ECLIA methodol ogy Blood specimen (specimen) BLOOD SPECIMEN / Unknown 12/26/2015 1:37 PM CDT 12/26/2015 2:01 PM CDT Narrative [facility] (BEAKER) - 12/27/2015 8:34 AM CDT Performed at: [address] [place] [address] [id number] Meat Counter Clerk: Collins Tabor PhD, Phone: [phone] Yakov Hargrove MD LAB - CHEMISTRY MCKENNA PASCUAL [facility] ([place]) * CEA BLOOD (12/26/2015 1:37 PM CDT) CEA 1.1 <=5.0 ng/mL [facility] Blood specimen (specimen) BLOOD SPECIMEN / Unknown 12/26/2015 1:37 PM CDT 12/26/2015 2:01 PM CDT Yakov Hargrove MD LAB - CHEMISTRY [place]CUAL [address] [phone]
--- NOTE | 2024-10-20 07:45 | P.HP_ITS ---
H&P: HPI History of Present Illness Date/Time: 10/20/24 07:45 Chief Complaint: desires permanent sterilization Narrative: 44-year-old female who presents for laparoscopic bilateral salpingectomy for permanent sterilization Review of Systems Cardiovascular: Cardiovascular: Denies chest pain, Denies leg edema, Denies palpitations, Denies dyspnea and Denies dyspnea on exertion Respiratory: Respiratory: Denies cough, Denies dyspnea and Denies dyspnea on exertion Gastrointestinal: Gastrointestinal: Denies abdominal pain, Denies constipation, Denies diarrhea, Denies nausea and Denies vomiting Genitourinary: Genitourinary: Denies hematuria, Denies urinary frequency, Denies dysuria, Denies pelvic pain, Denies urinary incontinence and Denies vag inal discharge Neurologic: Reports system reviewed and no additional complaints, except as documented Psychiatric: Psychiatric: Reports no additional psychiatric complaints Endocrine: Endocrine: Denies palpitations PMFSH Past Medical History Medical History Uterine mass Hx of adenomatous colonic polyps Obesity Tenesmus (rectal) Pelvic floor dysfunction in female Rectal pain Rectal bleeding Irritable bowel syndrome with constipation COVID-19 Uterine leiomyoma Rupture of anterior cruciate ligament Recurrent tonsillitis PSVT (paroxysmal supraventricular tachycardia) Positive depression screening Perioral dermatitis Palpitations Other specified depressive episodes Obstructive sleep apnea (adult) (pediatric) Mild intermittent asthma without complication Metabolic syndrome Liver mass Hx of abnormal cervical Pap smear Hepatic focal nodular hyperplasia Hematochezia Hemangioma of liver Groin mass Generalized anxiety disorder Encounter for other specified surgical aftercare Elevated blood pressure reading Effusion of right knee Contusion of right knee, initial encounter Contraceptive use Anxiety disorder, unspecified Annual physical exam Acute pain of right knee 10 weeks gestation of Bronchitis Otalgia of right ear Upper respiratory disease Cough Sacroiliitis Buttock pain Chronic insomnia History of rectal bleeding Normal colonoscopy External hemorrhoids Internal hemorrhoids Constipation by delayed colonic transit Sleep disorder Establishing care with new doctor, encounter for ACL injury tear Vertigo Gestational diabetes Lipid screening Surgical History Surgical History History of gynecologic surgery 11/05/2023 - hysteroscopy D&C - pelvic mass S/P right knee arthroscopy ACL repair 2017 H/O LEEP History of tonsillectomy History of ablation of neoplasm of liver Family History Family History Mother Hypertension Family history of diabetes mellitus in first degree relative Asthma Other Family history of arthritis Social History Social History Social History: Single Smoking status: Never smoker Second hand tobacco smoke exposure: No Alcohol intake: current Alcohol use details: RARE Substance use: never Substance use type: does not use Lack of Transportation: No Lack of Food: Never True Current Housing: I Have Housing Concerned About Future Housing: No Difficulty Paying Gas/Electric Bills: No Difficulty Paying for Meds: No Currently Unemployed: No Education: Decline to Answer Difficulty w/ Childcare or Family Care: No Living arrangements: with family Additional living arrangements comments: DAUGHTER Occupation/Education: occupation Gender identity (if verbalized by the patient): Female Sexual Orientation (if Verbalized by the Patient): Straight or Heterosexual Spiritual care concerns: No Meds Home Medications and Allergies Home Medications ?Medication ?Instructions ?Recorded ?Confirmed ?Type inhalat.spacing dev,large mask #1 ea 06/20/22 10/04/24 Rx (BreatheRite Spacer and Mask, Adult) albuterol sulfate 90 mcg/actuation 90 mcg inhalation Q4H PRN 11/13/22 10/07/24 History aerosol inhaler Shortness Of Breath linaclotide 290 mcg capsule 290 mcg PO QAM #90 caps 09/01/23 10/07/24 Rx (Linzess) escitalopram oxalate 10 mg tablet See Rx Instructions .Route 07/11/24 10/07/24 Rx .COMPLEX #135 tabs montelukast 10 mg tablet See Rx Instructions .Route 07/19/24 10/07/24 Rx .COMPLEX #90 tabs trazodone 50 mg tablet See Rx Instructions .Route 10/12/24 Rx .COMPLEX #180 tabs Allergies Allergy/AdvReac Type Severity Reaction Status Date / Time No Known Allergies Allergy Verified 10/07/24 14:22 Exam Const: General: no acute distress Eyes: EOM: EOMs intact bilaterally Neck: Neck: supple Thyroid: thyroid normal Chest: Breast/axilla inspection: normal inspection of the breasts Breast/axilla palpation: normal palpation of the breasts, normal palpation of the axillae and no axillary lymphadenopathy Resp: Effort & Inspection: normal respiratory effort Auscultation: clear to auscultation bilaterally Cardio: Rate: regular rate Rhythm: regular rhythm GI: Inspection: non-distended GI Palp: Yes Soft to palpation, No Tenderness to palpation present (GI) and No Guarding due to palpation present (GI) Auscultation: normal bowel sounds : General: No bladder normal to palpation External Female Exam: normal external appearance Speculum Exam - Vagina: normal vaginal discharge and No vaginal bleeding Speculum Exam - Cervix: nontender Bimanual exam- vagina & uterus: No bladder normal to palpation and No Cervical tenderness present OB/external & speculum: No vaginal bleeding Skin: General skin exam: normal color and no rashes or lesions noted Neuro: Cognition (Neuro): normal cognition Speech: normal speech Extrem: General: normal to inspection and no edema Psych: Mental Status: mental status grossly normal Affect: normal affect Assessment and Plan Assessment and plan (1) Sterilization consult: Code(s): Z30.09 - Encounter for other general counseling and advice on contraception Status: Acute Assessment and Plan: 44-year-old female who presents for preop consultation prior to laparoscopic bilateral salpingectomy for permanent sterilization Patient requests permanent sterilization Risks, benefits, alternatives reviewed Discussed that this procedure is nonreversible All questions answered today Will proceed with laparoscopic bilateral salpingectomy for permanent sterilization
--- NOTE | 2024-10-20 11:36 | WPDHPUPDATE1 ---
History and Physical Update Update Date/Time: 10/20/24 11:36 History and Physical has been reviewed, including an updated exam of the patient. There are NO changes in the patient's condition. Risks, benefits, and alternatives have been discussed and questions answered. Patient agrees to proceed with procedure.
[2024-10-20] MEDS: KETOROLAC 15 MG/ML VIAL (*BKC) IV PUSH (12:09)
[2024-10-20] MEDS: ACETAMINOPHEN 500 MG TABLET 1000 MG PO (12:10)
--- NOTE | 2024-10-20 12:30 | WPDANESEPPF ---
Anes - Initial Pre Proc Eval Procedure: Operation Date: 10/20/24 13:00 Proposed Procedures p Laparoscopic Bilateral Salpingectomy - Ruddy Ordoñez MD Date/Time: 10/20/24 12:30 Surgeon: Ruddy Ordoñez MD Pre Op Diagnosis: Desire Sterilization Patient Data Age: 44 Gender: F Height: 1.63 m Weight: 83.91 kg Allergies Allergy/AdvReac Type Severity Reaction Status Date / Time No Known Allergies Allergy Verified 10/07/24 14:22 Home Medications ?Medication ?Instructions ?Recorded ?Confirmed ?Type inhalat.spacing dev,large mask #1 ea 06/20/22 10/04/24 Rx (BreatheRite Spacer and Mask, Adult) albuterol sulfate 90 mcg/actuation 90 mcg inhalation Q4H PRN 11/13/22 10/07/24 History aerosol inhaler Shortness Of Breath linaclotide 290 mcg capsule 290 mcg PO QAM #90 caps 09/01/23 10/07/24 Rx (Linzess) escitalopram oxalate 10 mg tablet See Rx Instructions .Route 07/11/24 10/07/24 Rx .COMPLEX #135 tabs montelukast 10 mg tablet See Rx Instructions .Route 07/19/24 10/07/24 Rx .COMPLEX #90 tabs trazodone 50 mg tablet See Rx Instructions .Route 10/12/24 Rx .COMPLEX #180 tabs Patient hx anesthesia problems: none Family hx anesthesia problems: none Results Review: All pre-operative results and documents have been reviewed as part of the pre-operative evaluation. [facility] Past Medical History Medical History Uterine mass Hx of adenomatous colonic polyps Obesity Tenesmus (rectal) Pelvic floor dysfunction in female Rectal pain Rectal bleeding Irritable bowel syndrome with constipation COVID-19 Uterine leiomyoma Rupture of anterior cruciate ligament Recurrent tonsillitis PSVT (paroxysmal supraventricular tachycardia) Positive depression screening Perioral dermatitis Palpitations Other specified depressive episodes Obstructive sleep apnea (adult) (pediatric) Mild intermittent asthma without complication Metabolic syndrome Liver mass Hx of abnormal cervical Pap smear Hepatic focal nodular hyperplasia Hematochezia Hemangioma of liver Groin mass Generalized anxiety disorder Encounter for other specified surgical aftercare Elevated blood pressure reading Effusion of right knee Contusion of right knee, initial encounter Contraceptive use Anxiety disorder, unspecified Annual physical exam Acute pain of right knee 10 weeks gestation of Bronchitis Otalgia of right ear Upper respiratory disease Cough Sacroiliitis Buttock pain Chronic insomnia History of rectal bleeding Normal colonoscopy External hemorrhoids Internal hemorrhoids Constipation by delayed colonic transit Sleep disorder Establishing care with new doctor, encounter for ACL injury tear Vertigo Gestational diabetes Lipid screening Surgical History Surgical History History of gynecologic surgery 11/05/2023 - hysteroscopy D&C - pelvic mass S/P right knee arthroscopy ACL repair 2017 H/O LEEP History of tonsillectomy History of ablation of neoplasm of liver Family History Family History Mother Hypertension Family history of diabetes mellitus in first degree relative Asthma Other Family history of arthritis Social History Social History Social History: Single Smoking status: Never smoker Second hand tobacco smoke exposure: No Alcohol intake: current Alcohol use details: RARE Substance use: never Substance use type: does not use Lack of Transportation: No Lack of Food: Never True Current Housing: I Have Housing Concerned About Future Housing: No Difficulty Paying Gas/Electric Bills: No Difficulty Paying for Meds: No Currently Unemployed: No Education: Decline to Answer Difficulty w/ Childcare or Family Care: No Living arrangements: with family Additional living arrangements comments: DAUGHTER Occupation/Education: occupation Gender identity (if verbalized by the patient): Female Sexual Orientation (if Verbalized by the Patient): Straight or Heterosexual Spiritual care concerns: No Anes - Eval Final PreProcedure Day of Procedure 10/20/24 12:30 Patient weight: obese Heart: regular rate and rhythm Lungs: clear to auscultation Airway: Mallampati scale class II Neurological: alert and oriented Last oral intake: >/= 8 hours ASA classification: II Emergent: no Anesthetic plan: proceed Anesthesia type and monitoring: general ETT and standard monitoring Results Review: All pre-operative results and documents have been reviewed as part of the pre-operative evaluation. Informed Consent: The patient's anesthetic plan and its attendant risks and benefits were discussed with the patient/family/POA. Questions were solicited and answers provided to the satisfaction of the patient/family/POA.
[2024-10-20] MEDS: LACTATED RINGERS 1,000 ML 30 ML IV CONT ×2 (12:40→14:34)
--- NOTE | 2024-10-20 13:32 | P.OP_ITS ---
Procedure Note - Detailed Date of Procedure 10/20/24 Pre-op Diagnosis Desire Sterilization Post-op Diagnosis Same Procedure Performed laparoscopic bilateral salpingectomy Surgeon Ruddy Ordoñez MD Anesthesia General Indications desires permanent sterilization Findings normal appearing uterus, bilateral fallopian tubes and ovaries Description of Procedure the patient was taken to the operating room where general endotracheal anesthesia was undertaken and found to be adequate. She was then prepped and draped in the dorsal lithotomy position. A pre-operative team brief and time- out were completed. A catheter was placed to drain the bladder. Speculum was placed in the vagina and the cervix was identified. An acorn uterine manipulator was placed as well as single-tooth tenaculum on the anterior lip of the cervix. Attention was then turned to the abdomen which was anesthetized umbilical he with injected anesthetic. A 5 mm skin incision was made in the umbilicus. A 5 mm optical trocar was then placed with direct visualization of the abdominal layers during placement. The trocar stylette was removed and the camera was used to verify intra-abdominal placement.kateryna was used to verify intra-abdominal placement. CO2 insufflation was then connected and The abdominal cavity was insufflated. General abdominal and pelvic survey was performed. Two other laparoscopic port site incisions were made approximately 2 cm superior and medial of the ASIS bilaterally. Both fallopian tubes were inspected and identified out to the level of the fimbriae. The Fimbriated end of the left fallopian tube was then grasped with a blunt grasper. the fallopian tube was then transected along its inferior aspect along the mesosalpinx with the LigaSure device. Transection was carried out to the fallopian tubes insertion into the uterine fundus. The fallopian tube was then completely transected from the uterus using the LigaSure device. This procedure was repeated for the right fallopian tube. Good hemostasis was maintained throughout. The transected fgh the 5 mm laparoscopic portrom the abdomen through the 5 mm laparoscopic port. The surgical field was inspected and again could hemostasis was noted. At this point the procedure was ended. The abdomen was desufflated. All laparoscopic ports were removed from the abdomen. Abdominal incisions were closed with 4-0 Vicryl in a subcuticular fashion.. The acorn manipulator and tenaculum weere removed from the vagina. The cervix was inspected and good hemostasis was obtained. Sponge, lap and needle counts were correct. The patient tolerated the procedure well. The patient was taken out of dorsal lithotomy. anesthesia was reversed. The patient was taken to PACU in stable condition. Estimated Blood Loss 5 Urine Output 150 Drains No Packing No Pathology Yes ( Bilateral fallopian tubes) Complications No immediate complications Condition Stable Disposition PACU [facility] Billing Surgery - Charge Forward: Surgery Billing
[2024-10-20 13:44] LABS: BEDSIDEPREGUCG Negative (Negative)
[2024-10-20] MEDS: fentaNYL CITRATE INJ (*CRX) 100 MCG/2 ML VIAL 25 MCG IV PUSH ×8 (14:28→14:54)
[2024-10-20] MEDS: oxyCODONE HCL (*CRX) 5 MG TAB IR PO (15:41)
== END 2024-10-20 16:24 | disposition home or self-care (01) ==
PROVIDERS: PCP Family Medicine; Visit Provider Student in an Organized Health Care Education/Training Program
PROC: (CPT 49320; principal; 2024-10-20 13:00)
DX: Z30.2 Encounter for sterilization (principal); N83.8 Other noninflammatory disorders of ovary, fallopian tube and broad ligament; K58.1 Irritable bowel syndrome with constipation; G47.33 Obstructive sleep apnea (adult) (pediatric); J45.909 Unspecified asthma, uncomplicated; E88.810 Metabolic syndrome; F41.9 Anxiety disorder, unspecified; F51.04 Psychophysiologic insomnia; I47.10 Supraventricular tachycardia, unspecified; R00.2 Palpitations; F32.89 Other specified depressive episodes; R03.0 Elevated blood-pressure reading, without diagnosis of hypertension; E66.9 Obesity, unspecified; Z68.32 Body mass index [BMI] 32.0-32.9, adult; Z79.51 Long term (current) use of inhaled steroids; Z98.890 Other specified postprocedural states; Z86.0100 Personal history of colon polyps, unspecified
CPT/HCPCS: 58661; 88302; A9270; J1100; J1885; J2003; J2004; J2250; J2405; J2704; J3010; J7120